=== PATIENT | female | born 1990 | race Caucasian/White ===

== ENCOUNTER 2017-12-15 10:33 | Inpatient (IN) | payer MEDICAID ==
[2017-12-15] MEDS ORDERED: ONDANSETRON HCL INJ/PF 4 MG/2 ML SDV IV ONE (11:20)
--- NOTE | 2017-12-15 11:22 | ER Document Report ---
ED Medical Screen (RME) - General Chief Complaint: High Blood Sugar Stated Complaint: BLOOD SUGAR ISSUE Time Seen by Provider: 12/15/17 11:16 Notes: RME DISCLOSURE I have seen this patient as part of a Rapid Medical Evaluation and, if applicable, placed any initially appropriate orders. The patient will be seen and fully evaluated, including a full history and physical exam, by a provider ( in Main ED or Fast Track) when a room becomes available. 27-year-old female PMH diabetes here with complaints of backache headache nausea vomiting ongoing for the past few days. She has also had an abscess on her left upper extremity for the past 10 days which she has been placed on 2 different antibiotics and states "it finally popped recently". She feels this is a source of her symptoms and states it feels like she might have DKA once again. She has not missed any doses of her insulin, she reports. EXAM Tachycardic Left forearm cellulitis TRAVEL OUTSIDE OF THE [place] IN LAST 30 DAYS: No - Related Data Allergies/Adverse Reactions: cefaclor [From Ceclor] Allergy (Unknown, Verified 03/04/16 09:16) codeine [Codeine] Allergy (Verified 03/04/16 09:16) Shellfish * Allergy (Verified 03/04/16 09:16) Past Medical History - Past Medical History Cardiac Medical History: Denies: Hx Coronary Artery Disease, Hx Heart Attack, Hx Hypertension Pulmonary Medical History: Reports: Hx Asthma Denies: Hx Bronchitis, Hx COPD, Hx Pneumonia Neurological Medical History: Reports: Hx Migraine. Denies: Hx Cerebrovascular Accident, Hx Seizures Endocrine Medical History: Reports: Hx Diabetes Mellitus Type 1 Malignancy Medical History: Reports: Hx Cervical Cancer - Precancerous cells on a LEEP GI Medical History: Reports: Hx Gastroesophageal Reflux Disease Musculoskeltal Medical History: Reports Hx Arthritis, Reports Hx Musculoskeletal Deformity, Reports Hx Musculoskeletal Trauma Skin Medical History: Reports Hx MRSA Psychiatric Medical History: Reports: Hx Anxiety Traumatic Medical History: Reports: Hx Fractures - All fingers, both feet and ankles, right leg, nose, both wrist and right Infectious Medical History: Reports: Hx MRSA Past Surgical History: Reports: Hx Adenoidectomy, Hx Gynecologic Surgery - LEEP , Hx Myringotomy, Hx Oral Surgery - [place] teeth, Hx Orthopedic Surgery - Right anterior cruciate ligament repair, Hx Tonsillectomy. Denies: Hx Pacemaker - Immunizations Immunizations up to date: Yes Hx Diphtheria, Pertussis, Tetanus Vaccination: Yes - "ATLEAST 5 YEARS AGO" Physical Exam - Vital signs Vitals: Temp Pulse Resp BP Pulse Ox 98.8 F 127 H 16 128/74 H 97 12/15/17 10:40 12/15/17 10:40 12/15/17 10:40 12/15/17 10:40 12/15/17 10:40 Course - Vital Signs Vital signs: Temp Pulse Resp BP Pulse Ox 98.8 F 127 H 16 128/74 H 97 12/15/17 10:40 12/15/17 10:40 12/15/17 10:40 12/15/17 10:40 12/15/17 10:40
[2017-12-15] MEDS: NORMAL SALINE 1000 ML 1,000 ML IV PRN ×2 (11:31→12:17)
[2017-12-15 11:44] LABS: ABSOLUTE BASOPHILS # (AUTO) 0.1 10^3/uL (0.0-0.2); ABSOLUTE EOSINOPHILS # (AUTO) 0.1 10^3/uL (0.0-0.6); ABSOLUTE LYMPHOCYTES (AUTO) 1.5 10^3/uL (0.5-4.7); ABSOLUTE MONOCYTES (AUTO) 0.4 10^3/uL (0.1-1.4); ABSOLUTE NEUT (AUTO) 8.4 10^3/uL (1.7-8.2); BASOPHILS % (AUTO) 0.6 % (0-2); HEMATOCRIT 45.5 % (36.0-47.0); HEMOGLOBIN 15.7 g/dL (12.0-15.5); LYMPHOCYTES % (AUTO) 14.5 % (13-45); MEAN CORPUSCULAR HGB CONC 34.5 g/dL (32.0-36.0); MEAN CORPUSCULAR VOLUME 93 fl (80-97); PLATELET COUNT 437 10^3/uL (150-450); RED CELL DISTRIBUTION WIDTH 12.7 % (11.5-14.0); SEGMENTED NEUTROPHILS % (AUTO) 79.9 % (42-78); TOTAL CELLS COUNTED % (AUTO) 100 %; WHITE BLOOD COUNT 10.5 10^3/uL (4.0-10.5)
[2017-12-15] MEDS ORDERED: VANCOMYCIN HCL INJ 1000 MG VIAL IV ONE (11:58)
[2017-12-15] MEDS ORDERED: PIPERACILLIN/TAZOBACTAM 3.375 GM VIAL IV ONE (11:58)
[2017-12-15] MEDS ORDERED: FENTANYL CITRATE INJ/PF 100 MCG/2 ML AMPUL IV ONE (11:58)
[2017-12-15 12:04] LABS: ALANINE AMINOTRANSFERASE 28 U/L (9-52); ALBUMIN 4.3 g/dL (3.5-5.0); ALKALINE PHOSPHATASE 74 U/L (38-126); ASPARTATE AMINO TRANSFERASE 17 U/L (14-36); BILIRUBIN,DIRECT 0.5 mg/dL (0.0-0.4); BILIRUBIN,TOTAL 0.5 mg/dL (0.2-1.3); BLOOD UREA NITROGEN 10 mg/dL (7-20); CALCIUM 10.1 mg/dL (8.4-10.2); POTASSIUM 4.9 mmol/L (3.6-5.0); TOTAL PROTEIN 7.8 g/dL (6.3-8.2)
--- NOTE | 2017-12-15 12:06 | ER Document Report ---
ED General - General Chief Complaint: High Blood Sugar Stated Complaint: BLOOD SUGAR ISSUE Time Seen by Provider: 12/15/17 11:16 Mode of Arrival: Ambulatory Information source: Patient Notes: 27-year-old female type I diabetic presents with complaints of high blood sugar nausea vomiting. Patient believes she is in DKA, last similar episode was 5 years ago. Patient notes that approximately one half weeks ago her arm got stuck in the car door. Patient notes 2 days later became erythematous, she was seen by her primary care physician Dr. Ba patient was placed on Keflex and then clindamycin which she is currently taking. Patient notes the area opened up yesterday. Notes blood sugar was 300 last night Patient states hemoglobin A1c is approximately 9 TRAVEL OUTSIDE OF THE [place] IN LAST 30 DAYS: No - HPI Onset: Last week Onset/Duration: Persistent, Worse Quality of pain: Achy Severity: Mild Pain Level: 1 Associated symptoms: Nausea, Vomiting, Other Exacerbated by: Movement Relieved by: Denies Similar symptoms previously: No Recently seen / treated by doctor: No - Related Data Allergies/Adverse Reactions: cefaclor [From Ceclor] Allergy (Unknown, Verified 12/15/17 11:22) codeine [Codeine] Allergy (Verified 12/15/17 11:22) Shellfish * Allergy (Verified 12/15/17 11:22) Past Medical History - Social History Smoking Status: Current Every Day Smoker Cigarette use (# per day): Yes Chew tobacco use (# tins/day): No Smoking Education Provided: No Frequency of alcohol use: Occasional Drug Abuse: None Family History: Reviewed & Not Pertinent, Arthritis, CAD, CVA, DM, Hyperlipidemia, Hypertension, Malignancy, Thyroid Disfunction Patient has suicidal ideation: No Patient has homicidal ideation: No - Past Medical History Cardiac Medical History: Denies: Hx Coronary Artery Disease, Hx Heart Attack, Hx Hypertension Pulmonary Medical History: Reports: Hx Asthma Denies: Hx Bronchitis, Hx COPD, Hx Pneumonia Neurological Medical History: Reports: Hx Migraine. Denies: Hx Cerebrovascular Accident, Hx Seizures Endocrine Medical History: Reports: Hx Diabetes Mellitus Type 1 Renal/ Medical History: Denies: Hx Peritoneal Dialysis Malignancy Medical History: Reports: Hx Cervical Cancer - Precancerous cells on a LEEP GI Medical History: Reports: Hx Gastroesophageal Reflux Disease Musculoskeltal Medical History: Reports Hx Arthritis, Reports Hx Musculoskeletal Deformity, Reports Hx Musculoskeletal Trauma Skin Medical History: Reports Hx MRSA Psychiatric Medical History: Reports: Hx Anxiety Traumatic Medical History: Reports: Hx Fractures - All fingers, both feet and ankles, right leg, nose, both wrist and right Infectious Medical History: Reports: Hx MRSA Past Surgical History: Reports: Hx Adenoidectomy, Hx Gynecologic Surgery - LEEP , Hx Myringotomy, Hx Oral Surgery - [place] teeth, Hx Orthopedic Surgery - Right anterior cruciate ligament repair, Hx Tonsillectomy. Denies: Hx Pacemaker - Immunizations Immunizations up to date: Yes Hx Diphtheria, Pertussis, Tetanus Vaccination: Yes - "ATLEAST 5 YEARS AGO" Hx Pneumococcal Vaccination: 04/06/14 Review of Systems - Review of Systems Notes: REVIEW OF SYSTEMS: CONSTITUTIONAL : Denies fever, chills, or sweats. Denies recent illness. EENT: Denies eye, ear, throat, or mouth pain or symptoms. Denies nasal or sinus congestion or discharge. Denies throat, tongue, or mouth swelling or difficulty swallowing. CARDIOVASCULAR: Denies chest pain. Denies palpitations or racing or irregular heart beat. Denies ankle edema. RESPIRATORY: Denies cough, cold, or chest congestion. Denies shortness of breath, difficulty breathing, or wheezing. GASTROINTESTINAL: Admits nausea vomiting GENITOURINARY: Denies difficulty urinating, painful urination, burning, frequency, blood in urine, or discharge. FEMALE GENITOURINARY: Denies vaginal bleeding, heavy or abnormal periods, irregular periods. Denies vaginal discharge or odor. MUSCULOSKELETAL: Denies back or neck pain or stiffness. Denies joint pain or swelling. SKIN: Admits to abscess palmar forearm HEMATOLOGIC : Denies easy bruising or bleeding. LYMPHATIC: Denies swollen, enlarged glands. NEUROLOGICAL: Denies confusion or altered mental status. Denies passing out or loss of consciousness. Denies dizziness or lightheadedness. Denies headache. Denies weakness or paralysis or loss of use of either side. Denies problems with gait or speech. Denies sensory loss, numbness, or tingling. Denies seizures. PSYCHIATRIC: Denies anxiety or stress. Denies depression, suicidal ideation, or homicidal ideation. ALL OTHER SYSTEMS REVIEWED AND NEGATIVE. PHYSICAL EXAMINATION: GENERAL: Well-appearing, well-nourished and in no acute distress. HEAD: Atraumatic, normocephalic. EYES: Pupils equal round and reactive to light, extraocular movements intact, conjunctiva are normal. ENT: Nares patent, oropharynx clear without exudates. Moist mucous membranes. NECK: Normal range of motion, supple without lymphadenopathy LUNGS: Breath sounds clear to auscultation bilaterally and equal. No wheezes rales or rhonchi. HEART: Tachycardic ABDOMEN: Soft, nontender, nondistended abdomen. No guarding, no rebound. No masses appreciated. Female : deferred Musculoskeletal: Normal range of motion, no pitting or edema. No cyanosis. NEUROLOGICAL: Cranial nerves grossly intact. Normal speech, normal gait. Normal sensory, motor exams PSYCH: Normal mood, normal affect. SKIN: 4 x 5 cm abscess left palmar aspect of the forearm with 2 areas of drainage Dictation was performed using [employer] voice recognition software Physical Exam - Vital signs Vitals: Temp Pulse Resp BP Pulse Ox 98.8 F 127 H 16 128/74 H 97 12/15/17 10:40 12/15/17 10:40 12/15/17 10:40 12/15/17 10:40 12/15/17 10:40 Course - Re-evaluation Re-evalutation: 12/15/17 12:06 Patient is a poorly controlled diabetic, 12/15/17 13:33 Patient is in DKA, antibiotics started, insulin drip ordered, patient will be admitted to the hospitalist service - Vital Signs Vital signs: Temp Pulse Resp BP Pulse Ox 98.8 F 127 H 20 118/71 100 12/15/17 10:40 12/15/17 10:40 12/15/17 13:01 12/15/17 13:01 12/15/17 13:01 - Laboratory Result Diagrams: 12/15/17 11:33 12/15/17 11:33 Laboratory results interpreted by me: 12/15/17 12/15/17 12/15/17 11:33 11:33 12:00 Hgb 15.7 H Seg Neutrophils % 79.9 H Absolute Neutrophils 8.4 H Carbon Dioxide 18 L Anion Gap 24 H Glucose 398 H Direct Bilirubin 0.5 H Urine Glucose (UA) >=500 H Urine Ketones 80 H Critical Care Note - Critical Care Note Total time excluding time spent on procedures (mins): 49 Comments: 49 minutes of critical care time spent in direct contact evaluating and reevaluating the patient, treating symptoms, reviewing labs and studies and speaking with family and consultants excluding any procedures Discharge - Discharge Clinical Impression: Abscess of left forearm Diabetic ketoacidosis Qualifiers: Diabetes mellitus type: type 1 Diabetes mellitus complication detail: without coma Qualified Code(s): E10.10 - Type 1 diabetes mellitus with ketoacidosis without coma Condition: Fair Disposition: ADMITTED INPATIENT Admitting Provider: Hospitalist Unit Admitted: Telemetry
[2017-12-15 12:10] LABS: CARBON DIOXIDE 18 mmol/L (22-30); CHLORIDE 99 mmol/L (98-107); GLUCOSE 398 mg/dL (75-110)
[2017-12-15 12:12] LABS: ANION GAP 24 (5-19)
[2017-12-15 12:37] LABS: APPEARANCE,URINE CLEAR; BILIRUBIN,URINE NEGATIVE (NEGATIVE); COLOR,URINE STRAW; GLUCOSE, URINE >=500 mg/dL (NEGATIVE); KETONES,URINE 80 mg/dL (NEGATIVE); LEUKOCYTE ESTERASE,URINE NEGATIVE (NEGATIVE); NITRITE,URINE NEGATIVE (NEGATIVE); PROTEIN,URINE NEGATIVE (NEGATIVE); URINE SPECIFIC GRAVITY 1.027; UROBILINOGEN,URINE NEGATIVE mg/dL (<2.0)
[2017-12-15 12:39] LABS: VENOUS BLOOD HCO3 20.4 mmol/L (20-32); VENOUS BLOOD PCO2 39.2 mmHg (35-63); VENOUS BLOOD PH 7.33 (7.30-7.42)
[2017-12-15] MEDS ORDERED: INSULIN REG, HUMAN 100 UNIT/ML 3 ML VIAL (PYX) IV ONE (13:22)
[2017-12-15] MEDS ORDERED: NORMAL SALINE 100 ML with INSULIN REGULAR, HUMAN 100 UNIT IV PRN ×2 (13:50)
[2017-12-15] MEDS ORDERED: DEXTROSE 40% GEL 15 GM TUBE PO PRN ×4 (13:50)
[2017-12-15] MEDS ORDERED: IPRATROPIUM/ALBUTEROL 0.5-2.5 MG/3 ML AMPUL NEB PRN (13:50)
[2017-12-15] MEDS ORDERED: GLUCAGON,HUMAN RECOMB 1 MG INJ IM PRN (13:50)
[2017-12-15] MEDS ORDERED: ACETAMINOPHEN 325 MG TABLET PO PRN (13:50)
[2017-12-15] MEDS ORDERED: DEXTROSE 50%-WATER 25 GM/50 ML DISP.SYRIN IV PRN ×4 (13:50)
[2017-12-15] MEDS ORDERED: NORMAL SALINE 1000 ML 1,000 ML IV PRN (13:50)
[2017-12-15] MEDS ORDERED: GLUCAGON,HUMAN RECOMB 1 MG INJ SUBCUT PRN (13:50)
[2017-12-15] MEDS ORDERED: LORAZEPAM INJ 2 MG/1 ML VIAL IV ONE (14:00)
[2017-12-15] MEDS: OXYCODONE-ACETAMINOPHEN 5-325 MG TABLET PO PRN ×3 (14:22→22:45)
--- NOTE | 2017-12-15 14:27 | PDOC H&P ---
History of Present Illness Admission Date/PCP: 12/15/17 13:44 МАРИЯ HUDDLESTON MD Patient complains of: Nausea and vomiting History of Present Illness: NEIL LONG is a 27 year old female with type 1 diabetes. She injured her left wrist on a car door about 4 days ago and it is subsequently become red and swollen and is now draining. Her blood sugar has been over 300. Today she developed intractable nausea and vomiting and came into the emergency room. She denies fevers and chills. She denies any loss of sensation hand or significant pain with movement of her wrist. Currently she is complaining of pain in the back of her head as well as nausea. She received 50 mcg of fentanyl in the emergency department without significant effect. Past Medical History Cardiac Medical History: Denies: Coronary Artery Disease, Myocardial Infarction, Hypertension Pulmonary Medical History: Reports: Asthma Denies: Bronchitis, Chronic Obstructive Pulmonary Disease (COPD), Pneumonia Neurological Medical History: Reports: Migraine Denies: Seizures Endocrine Medical History: Reports: Diabetes Mellitus Type 1 Malignancy Medical History: Reports: Cervical Cancer - Precancerous cells on a LEEP GI Medical History: Reports: Gastroesophageal Reflux Disease Musculoskeltal Medical History: Reports: Arthritis Hematology: Denies: Anemia Infectious Medical History: Reports: Methicillin-Resistant Staph Aureus Past Surgical History Past Surgical History: Reports: Adenoidectomy, Orthopedic Surgery - Right anterior cruciate ligament repair, Tonsillectomy Denies: Pacemaker Social History Information Source: Patient Smoking Status: Current Every Day Smoker Hx Recreational Drug Use: No Hx Prescription Drug Abuse: No - Advance Directive Resuscitation Status: Full Code Surrogate healthcare decision maker:: Declined to specify Family History Family History: Reviewed & Not Pertinent, Arthritis, CAD, CVA, DM, Hyperlipidemia, Hypertension, Malignancy, Thyroid Disfunction Parental Family History Reviewed: Yes Children Family History Reviewed: No Sibling(s) Family History Reviewed.: No Medication/Allergy Home Medications: Insulin Aspart [Novolog Insulin (Aspart) 100 unit/mL] 0 unit SUBCUT ASDIR PRN Insulin Detemir [Levemir Insulin 100 units/mL] 35 units SQ QAM 03/22/14 Insulin Detemir [Levemir Insulin 300 Units/3 ml Insuln.pen] 30 unit SUBCUT QHS 05/05/16 Allergies/Adverse Reactions: cefaclor [From Ceclor] Allergy (Unknown, Verified 12/15/17 11:22) codeine [Codeine] Allergy (Verified 12/15/17 11:22) Shellfish * Allergy (Verified 12/15/17 11:22) Review of Systems All systems: reviewed and no additional remarkable complaints except as stated Physical Exam Vital Signs: Temp Pulse Resp BP Pulse Ox 98.8 F 127 H 20 118/71 100 12/15/17 10:40 12/15/17 10:40 12/15/17 13:01 12/15/17 13:01 12/15/17 13:01 General appearance: PRESENT: no acute distress Respiratory exam: PRESENT: clear to auscultation andrea Cardiovascular exam: PRESENT: RRR GI/Abdominal exam: PRESENT: normal bowel sounds, soft, tenderness - Diffuse Neurological exam: PRESENT: alert Psychiatric exam: PRESENT: anxious, flat affect. ABSENT: appropriate affect Skin exam: PRESENT: erythema, warm, other - About a 3 cm raised erythematous region on the palmar surface of her right wrist with some evident drainage Assessment & Plan - Diagnosis (1) Diabetic ketoacidosis Qualifiers: Diabetes mellitus type: type 1 Diabetes mellitus complication detail: without coma Qualified Code(s): E10.10 - Type 1 diabetes mellitus with ketoacidosis without coma Is this a current diagnosis for this admission?: Yes Plan: I will put her on an insulin drip with every hour Accu-Cheks, hydrate her with normal saline (2) Abscess of left forearm Is this a current diagnosis for this admission?: Yes Plan: Empiric treatment with vancomycin and Zosyn. Looks to me like it needs to be opened up at least. Orthopedics is planning to take her to the OR tomorrow to wash this out. Continue her n.p.o. status. (3) Anxiety Is this a current diagnosis for this admission?: Yes Plan: Her level of anxiety is out of proportion to her current problem. She looks to me like she might be withdrawing from something. I will give her some Ativan right now and continue to monitor closely.
[2017-12-15 15:16] LABS: URINE AMPHETAMINES SCREEN NEGATIVE; URINE BARBITURATES SCREEN NEGATIVE; URINE BENZODIAZEPINES SCREEN NEGATIVE; URINE COCAINE SCREEN NEGATIVE; URINE METHADONE SCREEN NEGATIVE; URINE PHENCYCLIDINE SCREEN NEGATIVE
[2017-12-15 15:24] LABS: URINE MARIJUANA (THC) SCREEN NEGATIVE
[2017-12-15] MEDS ORDERED: ENOXAPARIN SODIUM INJ 40 MG/0.4 ML DISP.SYRIN SUBCUT ONE (16:00)
[2017-12-15] MEDS ORDERED: AMPICILLIN SOD/SULBACTAM 3 GM VIAL IV SCH (18:00)
[2017-12-15] MEDS ORDERED: POTASSI CL 20 MEQ/D5-1/2NS 1L 1000 ML IV PRN (21:00)
[2017-12-15] MEDS: AMPICILLIN SODIUM/SULBACTAM NA 3 GM in NORMAL SALINE 100 ML IV SCH (21:10)
[2017-12-15 21:24] LABS: ANION GAP 15 (5-19); BLOOD UREA NITROGEN 7 mg/dL (7-20); CALCIUM 9.3 mg/dL (8.4-10.2); CARBON DIOXIDE 21 mmol/L (22-30); CHLORIDE 106 mmol/L (98-107); GLUCOSE 142 mg/dL (75-110); POTASSIUM 4.1 mmol/L (3.6-5.0); SODIUM 141.9 mmol/L (137-145)
[2017-12-15 21:26] LABS: ALBUMIN 3.4 g/dL (3.5-5.0); ANION GAP 15 (5-19); BLOOD UREA NITROGEN 7 mg/dL (7-20); CALCIUM 9.3 mg/dL (8.4-10.2); CARBON DIOXIDE 22 mmol/L (22-30); CHLORIDE 106 mmol/L (98-107); GLUCOSE 142 mg/dL (75-110); PHOSPHORUS 2.7 mg/dL (2.5-4.5); SODIUM 142.8 mmol/L (137-145)
[2017-12-15] MEDS ORDERED: VANCOMYCIN HCL INJ 1000 MG VIAL IV SCH (22:00)
[2017-12-15] MEDS ORDERED: ZOLPIDEM TARTRATE 5 MG TABLET PO PRN (22:31)
[2017-12-15] MEDS: FAMOTIDINE INJ/PF 20 MG/2 ML SDV IV SCH (22:41)
[2017-12-15] MEDS: VANCOMYCIN HCL 1,000 MG in DEXTROSE 5%-WATER 250 ML IV SCH (22:41)
[2017-12-16] MEDS: AMPICILLIN SODIUM/SULBACTAM NA 3 GM in NORMAL SALINE 100 ML IV SCH ×4 (01:50→17:19)
[2017-12-16 02:31] LABS: ALBUMIN 3.2 g/dL (3.5-5.0); ANION GAP 13 (5-19); BLOOD UREA NITROGEN 8 mg/dL (7-20); CALCIUM 9.1 mg/dL (8.4-10.2); CARBON DIOXIDE 18 mmol/L (22-30); CHLORIDE 109 mmol/L (98-107); GLUCOSE 210 mg/dL (75-110); POTASSIUM 3.8 mmol/L (3.6-5.0); SODIUM 140.4 mmol/L (137-145)
[2017-12-16] MEDS: OXYCODONE-ACETAMINOPHEN 5-325 MG TABLET PO PRN ×3 (03:49→15:58)
[2017-12-16] MEDS: VANCOMYCIN HCL 1,000 MG in DEXTROSE 5%-WATER 250 ML IV SCH ×2 (03:49→17:15)
[2017-12-16 06:26] LABS: ABSOLUTE BASOPHILS # (AUTO) 0.1 10^3/uL (0.0-0.2); ABSOLUTE EOSINOPHILS # (AUTO) 0.2 10^3/uL (0.0-0.6); ABSOLUTE LYMPHOCYTES (AUTO) 2.7 10^3/uL (0.5-4.7); ABSOLUTE MONOCYTES (AUTO) 0.5 10^3/uL (0.1-1.4); ABSOLUTE NEUT (AUTO) 4.4 10^3/uL (1.7-8.2); BASOPHILS % (AUTO) 0.7 % (0-2); EOSINOPHILS % (AUTO) 2.8 % (0-6); HEMATOCRIT 36.5 % (36.0-47.0); LYMPHOCYTES % (AUTO) 34.1 % (13-45); MEAN CORPUSCULAR HEMOGLOBIN 31.3 pg (27.0-33.4); MEAN CORPUSCULAR HGB CONC 34.4 g/dL (32.0-36.0); MEAN CORPUSCULAR VOLUME 91 fl (80-97); MONOCYTES % (AUTO) 6.9 % (3-13); PLATELET COUNT 357 10^3/uL (150-450); RED BLOOD COUNT 4.02 10^6/uL (3.72-5.28); RED CELL DISTRIBUTION WIDTH 12.2 % (11.5-14.0); SEGMENTED NEUTROPHILS % (AUTO) 55.5 % (42-78); TOTAL CELLS COUNTED % (AUTO) 100 %; WHITE BLOOD COUNT 7.9 10^3/uL (4.0-10.5)
[2017-12-16 06:43] LABS: ALANINE AMINOTRANSFERASE 23 U/L (9-52); ALKALINE PHOSPHATASE 50 U/L (38-126); ANION GAP 12 (5-19); ASPARTATE AMINO TRANSFERASE 18 U/L (14-36); BILIRUBIN,DIRECT 0.4 mg/dL (0.0-0.4); BILIRUBIN,TOTAL 0.4 mg/dL (0.2-1.3); BLOOD UREA NITROGEN 6 mg/dL (7-20); CALCIUM 8.9 mg/dL (8.4-10.2); CARBON DIOXIDE 21 mmol/L (22-30); CHLORIDE 110 mmol/L (98-107); GLUCOSE 156 mg/dL (75-110); PHOSPHORUS 3.1 mg/dL (2.5-4.5); POTASSIUM 3.6 mmol/L (3.6-5.0); SODIUM 143.2 mmol/L (137-145); TOTAL PROTEIN 5.8 g/dL (6.3-8.2)
[2017-12-16 07:26] LABS: HEMOGLOBIN 12.6 g/dL (12.0-15.5)
[2017-12-16] MEDS ORDERED: 1/2 NORMAL SALINE 1,000 ML IV PRN (07:59)
[2017-12-16] MEDS ORDERED: LORAZEPAM INJ 2 MG/1 ML VIAL IV PRN (08:05)
[2017-12-16] MEDS: FAMOTIDINE INJ/PF 20 MG/2 ML SDV IV SCH ×2 (08:43→22:29)
[2017-12-16] MEDS: ENOXAPARIN SODIUM INJ 40 MG/0.4 ML DISP.SYRIN SUBCUT SCH (08:47)
[2017-12-16] MEDS: METHIMAZOLE 5 MG TABLET PO SCH (09:03)
[2017-12-16] MEDS ORDERED: (PENDING PHARMACY ID) (Methimazole [Tapazole] 10 MG) PO SCH (10:00)
[2017-12-16] MEDS ORDERED: INSULIN LISPRO 100 UNIT/ML 3 ML VIAL SUBCUT SCH (11:00)
[2017-12-16] MEDS: INSULIN LISPRO 100 UNIT/ML 3 ML VIAL SUBCUT PRN ×3 (11:35→22:30)
[2017-12-16] MEDS ORDERED: INSULIN GLARGINE,HUM.REC.ANLOG 300 UNIT/3 ML INSULN.PEN SUBCUT SCH (12:00)
[2017-12-16] MEDS ORDERED: BACITRACIN INJ 50,000 UNIT VIAL ONE (12:38)
[2017-12-16] MEDS ORDERED: MIDAZOLAM 2 MG/2 ML INJ ONE (13:04)
[2017-12-16] MEDS ORDERED: FENTANYL CITRATE INJ/PF 100 MCG/2 ML AMPUL ONE (13:04)
[2017-12-16] MEDS ORDERED: PROPOFOL INJ 200 MG/20 ML VIAL IV ONE (13:05)
--- NOTE | 2017-12-16 13:25 | PDOC PROGRESS REPORT ---
Subjective Progress Note for:: 12/16/17 Subjective:: Continues to be very anxious. Complains of back pain. Now recalls that she has been out of her methimazole for "sometime". Reason For Visit: DKA,WRIST LESION Physical Exam Vital Signs: Temp Pulse Resp BP Pulse Ox 98.5 F 114 H 18 123/65 100 12/16/17 11:32 12/16/17 11:32 12/16/17 11:32 12/16/17 11:32 12/16/17 11:32 Intake & Output 12/15/17 12/16/17 12/17/17 06:59 06:59 06:59 Intake Total 1450 Balance 1450 General appearance: PRESENT: no acute distress Respiratory exam: PRESENT: clear to auscultation andrea Cardiovascular exam: PRESENT: RRR GI/Abdominal exam: PRESENT: soft Neurological exam: PRESENT: alert Psychiatric exam: PRESENT: flat affect Skin exam: PRESENT: dry, warm Results Laboratory Results: 12/16/17 06:13 12/16/17 06:13 12/15/17 12/15/17 12/16/17 20:54 20:54 02:05 WBC RBC Hgb Hct MCV MCH MCHC RDW Plt Count Seg Neutrophils % Lymphocytes % Monocytes % Eosinophils % Basophils % Absolute Neutrophils Absolute Lymphocytes Absolute Monocytes Absolute Eosinophils Absolute Basophils Sodium 142.8 141.9 140.4 Potassium 4.0 4.1 3.8 Chloride 106 106 109 H Carbon Dioxide 22 21 L 18 L Anion Gap 15 15 13 BUN 7 7 8 Creatinine 0.43 L 0.42 L 0.40 L Est GFR ( Amer) > 60 > 60 > 60 Est GFR (Non-Af Amer) > 60 > 60 > 60 Glucose 142 H 142 H 210 H Calcium 9.3 9.3 9.1 Phosphorus 2.7 3.0 Magnesium Total Bilirubin AST ALT Alkaline Phosphatase Total Protein Albumin 3.4 L 3.2 L TSH Free T4 12/16/17 12/16/17 12/16/17 06:13 06:13 06:13 WBC 7.9 RBC 4.02 Hgb 12.6 D Hct 36.5 MCV 91 MCH 31.3 MCHC 34.4 RDW 12.2 Plt Count 357 Seg Neutrophils % 55.5 Lymphocytes % 34.1 Monocytes % 6.9 Eosinophils % 2.8 Basophils % 0.7 Absolute Neutrophils 4.4 Absolute Lymphocytes 2.7 Absolute Monocytes 0.5 Absolute Eosinophils 0.2 Absolute Basophils 0.1 Sodium 143.2 Potassium 3.6 Chloride 110 H Carbon Dioxide 21 L Anion Gap 12 BUN 6 L Creatinine 0.38 L Est GFR ( Amer) > 60 Est GFR (Non-Af Amer) > 60 Glucose 156 H Calcium 8.9 Phosphorus 3.1 Magnesium 1.6 Total Bilirubin 0.4 AST 18 ALT 23 Alkaline Phosphatase 50 Total Protein 5.8 L Albumin 3.0 L TSH < 0.01 L Free T4 12/16/17 06:13 WBC RBC Hgb Hct MCV MCH MCHC RDW Plt Count Seg Neutrophils % Lymphocytes % Monocytes % Eosinophils % Basophils % Absolute Neutrophils Absolute Lymphocytes Absolute Monocytes Absolute Eosinophils Absolute Basophils Sodium Potassium Chloride Carbon Dioxide Anion Gap BUN Creatinine Est GFR ( Amer) Est GFR (Non-Af Amer) Glucose Calcium Phosphorus Magnesium Total Bilirubin AST ALT Alkaline Phosphatase Total Protein Albumin TSH Free T4 2.11 Assessment & Plan - Diagnosis (1) Diabetic ketoacidosis Qualifiers: Diabetes mellitus type: type 1 Diabetes mellitus complication detail: without coma Qualified Code(s): E10.10 - Type 1 diabetes mellitus with ketoacidosis without coma Is this a current diagnosis for this admission?: Yes Plan: Gap is closed. Stop insulin drip. Restart her home Lantus. Cover with sliding scale every 4 hours. Continue to monitor her CO2 to make sure her gap does not reopen. Continue hydration. (2) Abscess of left forearm Is this a current diagnosis for this admission?: Yes Plan: Due to go down for a washout later today. Continue antibiotics for now pending cultures (3) Hyperthyroidism Is this a current diagnosis for this admission?: Yes Plan: Restart her methimazole. Her free T4 was not notably elevated. (4) Anxiety Is this a current diagnosis for this admission?: Yes Plan: Her level of anxiety is out of proportion to her current problem. May be related to hyperthyroidism. Treat with benzodiazepines for now
[2017-12-16] MEDS ORDERED: DIPHENHYDRAMINE HCL 50 MG/ML VIAL IV PRN (13:57)
[2017-12-16] MEDS ORDERED: ONDANSETRON HCL INJ/PF 4 MG/2 ML SDV IV PRN (13:57)
[2017-12-16] MEDS ORDERED: FENTANYL CITRATE INJ/PF 100 MCG/2 ML AMPUL IV PRN ×3 (13:57)
[2017-12-16] MEDS ORDERED: ACETAMINOPHEN 100 ML IV ONE (14:13)
[2017-12-16] MEDS ORDERED: KETOROLAC TROMETHAMINE INJ/PF 30 MG/1 ML SDV ONE (14:13)
[2017-12-16] MEDS: HYDROMORPHONE HCL INJ/PF 2 MG/ML AMPULE ONE ×2 (14:15→14:30)
[2017-12-16] MEDS ORDERED: ONDANSETRON HCL INJ/PF 4 MG/2 ML SDV ONE (14:36)
[2017-12-16] MEDS ORDERED: RINGERS SOLUTION,LACTATED 1,000 ML IV PRN (14:37)
[2017-12-16] MEDS ORDERED: INSULIN LISPRO 100 UNIT/ML 3 ML VIAL ONE (14:38)
--- NOTE | 2017-12-16 15:17 | PDOC CONSULTATION ---
Consultation Consult Date: 12/15/17 Consult reason:: Left forearm/wrist abscess History of Present Illness Admission Date/PCP: 12/15/17 13:44 МАРИЯ HUDDLESTON MD Patient complains of: Left wrist wound drainage and pain History of Present Illness: NEIL LONG is a 27 year old diabetic female with what she states 1 week of redness swelling and pain. She states she injured it with a door. States she saw her primary who started on antibiotics but when the pain and drainage got worse patient came to the ER for evaluation. She was admitted for infection and her diabetic ketoacidosis. States having fever and increasing pain and swelling of her left wrist on the volar aspect. Denies any numbness or tingling or paresthesias or lack of function of her digits. Has any previous injuries or infection in that left hand. Pain is 5 out of 5 pain. Past Medical History Cardiac Medical History: Denies: Coronary Artery Disease, Myocardial Infarction, Hypertension Pulmonary Medical History: Reports: Asthma Denies: Bronchitis, Chronic Obstructive Pulmonary Disease (COPD), Pneumonia Neurological Medical History: Reports: Migraine Denies: Seizures Endocrine Medical History: Reports: Diabetes Mellitus Type 1 Malignancy Medical History: Reports: Cervical Cancer - Precancerous cells on a LEEP GI Medical History: Reports: Gastroesophageal Reflux Disease Musculoskeltal Medical History: Reports: Arthritis Hematology: Denies: Anemia Infectious Medical History: Reports: Methicillin-Resistant Staph Aureus Past Surgical History Past Surgical History: Reports: Adenoidectomy, Orthopedic Surgery - Right anterior cruciate ligament repair, Tonsillectomy Denies: Pacemaker Social History Smoking Status: Current Every Day Smoker Frequency of Alcohol Use: Occasional Hx Recreational Drug Use: No Hx Prescription Drug Abuse: No - Advance Directive Resuscitation Status: Full Code Family History Family History: Reviewed & Not Pertinent, Arthritis, CAD, CVA, DM, Hyperlipidemia, Hypertension, Malignancy, Thyroid Disfunction Parental Family History Reviewed: No Children Family History Reviewed: No Sibling(s) Family History Reviewed.: No Medication/Allergy Home Medications: Insulin Aspart [Novolog Insulin (Aspart) 100 unit/mL] 0 unit SUBCUT .SLIDING SCALE PRN 07/26/12 Cephalexin Monohydrate [Keflex 500 mg Capsule] 500 mg PO Q6 12/15/17 Insulin Aspart [Novolog Insulin 100 Unit/1 ml 10 ml] 8 unit SUBCUT AC 12/15/17 Insulin Glargine,Hum.rec.anlog [Lantus Solostar] 40 unit SQ NOON 12/15/17 Methimazole [Tapazole] 10 mg PO DAILY 12/15/17 Allergies/Adverse Reactions: cefaclor [From Ceclor] Allergy (Unknown, Verified 12/15/17 11:22) codeine [Codeine] Allergy (Verified 12/15/17 11:22) Shellfish * Allergy (Verified 12/15/17 11:22) Review of Systems Constitutional: ABSENT: fever(s), night sweats, weight gain, weight loss Eyes: ABSENT: visual disturbances Ears: ABSENT: hearing changes Nose, Mouth, and Throat: ABSENT: sore throat Cardiovascular: ABSENT: chest pain, orthropnea Respiratory: ABSENT: dyspnea, hemoptysis Gastrointestinal: ABSENT: nausea, vomiting Musculoskeletal: PRESENT: as per HPI. ABSENT: deformity, dislocation Integumentary: PRESENT: as per HPI, wounds Neurological: ABSENT: numbness, paresthesias Psychiatric: ABSENT: hallucinations, homidical ideation, suicidal ideation Endocrine: ABSENT: cold intolerance, heat intolerance Hematologic/Lymphatic: ABSENT: easy bleeding, lymphadenopathy Allergic/Immunologic: ABSENT: seasonal rhinorrhea Physical Exam Vital Signs: Temp Pulse Resp BP Pulse Ox 36.9 C 114 H 18 123/65 100 12/16/17 11:32 12/16/17 11:32 12/16/17 11:32 12/16/17 11:32 12/16/17 11:32 Intake & Output 12/15/17 12/16/17 12/17/17 06:59 06:59 06:59 Intake Total 1450 Balance 1450 General appearance: PRESENT: no acute distress, well-nourished Head exam: PRESENT: atraumatic Eye exam: PRESENT: EOMI, PERRLA. ABSENT: nystagmus Ear exam: PRESENT: normal external ear exam Mouth exam: PRESENT: dry mucosa, neck supple Neck exam: ABSENT: lymphadenopathy, thyromegaly Respiratory exam: PRESENT: symmetrical, unlabored. ABSENT: accessory muscle use , chest wall tenderness, tachypnea Cardiovascular exam: PRESENT: RRR Pulses: PRESENT: normal radial pulses Vascular exam: PRESENT: normal capillary refill GI/Abdominal exam: PRESENT: soft. ABSENT: guarding, organolmegaly, tenderness Neurological exam: PRESENT: alert, awake, oriented to person, oriented to place , oriented to time, oriented to situation Psychiatric exam: PRESENT: appropriate affect, normal mood Skin exam: PRESENT: erythema, skin tears Adult Front & Back Image: 1 - 2 sinus tracts on the volar aspect of the left wrist just at the distal aspect of the forearm. There is post able to be expressed. Elevated erythema about 1.5 x 1.5 cm. Patient does have full flexion extension of her fingers with some discomfort but they are completely intact. There is no swelling of the digits or hand and no tenderness in the thenar or hyperthenar region. She has good capillary refill to her digits. There is no streaking or lymphadenopathy proximal. Some discomfort with the wrist motion but that seems to be intact as well. Results Laboratory Results: 12/16/17 06:13 12/16/17 06:13 12/15/17 12/15/17 12/16/17 20:54 20:54 02:05 WBC RBC Hgb Hct MCV MCH MCHC RDW Plt Count Seg Neutrophils % Lymphocytes % Monocytes % Eosinophils % Basophils % Absolute Neutrophils Absolute Lymphocytes Absolute Monocytes Absolute Eosinophils Absolute Basophils Sodium 142.8 141.9 140.4 Potassium 4.0 4.1 3.8 Chloride 106 106 109 H Carbon Dioxide 22 21 L 18 L Anion Gap 15 15 13 BUN 7 7 8 Creatinine 0.43 L 0.42 L 0.40 L Est GFR ( Amer) > 60 > 60 > 60 Est GFR (Non-Af Amer) > 60 > 60 > 60 Glucose 142 H 142 H 210 H Calcium 9.3 9.3 9.1 Phosphorus 2.7 3.0 Magnesium Total Bilirubin AST ALT Alkaline Phosphatase Total Protein Albumin 3.4 L 3.2 L TSH Free T4 12/16/17 12/16/17 12/16/17 06:13 06:13 06:13 WBC 7.9 RBC 4.02 Hgb 12.6 D Hct 36.5 MCV 91 MCH 31.3 MCHC 34.4 RDW 12.2 Plt Count 357 Seg Neutrophils % 55.5 Lymphocytes % 34.1 Monocytes % 6.9 Eosinophils % 2.8 Basophils % 0.7 Absolute Neutrophils 4.4 Absolute Lymphocytes 2.7 Absolute Monocytes 0.5 Absolute Eosinophils 0.2 Absolute Basophils 0.1 Sodium 143.2 Potassium 3.6 Chloride 110 H Carbon Dioxide 21 L Anion Gap 12 BUN 6 L Creatinine 0.38 L Est GFR ( Amer) > 60 Est GFR (Non-Af Amer) > 60 Glucose 156 H Calcium 8.9 Phosphorus 3.1 Magnesium 1.6 Total Bilirubin 0.4 AST 18 ALT 23 Alkaline Phosphatase 50 Total Protein 5.8 L Albumin 3.0 L TSH < 0.01 L Free T4 12/16/17 06:13 WBC RBC Hgb Hct MCV MCH MCHC RDW Plt Count Seg Neutrophils % Lymphocytes % Monocytes % Eosinophils % Basophils % Absolute Neutrophils Absolute Lymphocytes Absolute Monocytes Absolute Eosinophils Absolute Basophils Sodium Potassium Chloride Carbon Dioxide Anion Gap BUN Creatinine Est GFR ( Amer) Est GFR (Non-Af Amer) Glucose Calcium Phosphorus Magnesium Total Bilirubin AST ALT Alkaline Phosphatase Total Protein Albumin TSH Free T4 2.11 Status: Image reviewed by me Assessment & Plan - Diagnosis (1) Abscess of left forearm Is this a current diagnosis for this admission?: Yes Plan: 27-year-old female who has draining wounds in her forearm with a raised elevated likely abscess. Patient will be kept overnight and treated by the hospitalist for her diabetic ketoacidosis. Discussed with him that he will allow me to proceed with an I&D of the left forearm tomorrow. The meantime continue IV antibiotics. Cultures were taken prior to starting IV antibiotics. Meantime just apply a bulky dressing and she will be placed n.p.o. after midnight. After discussing the risk and benefits the patient consented for surgery. - Plan Summary Plan Summary: 27-year-old female with diabetic ketoacidosis and the left forearm abscess and infection that is draining. Patient states the injury occurred on Tuesday but I believe this is been going longer than that. She has 2 sinus tracts are draining. On the other extremity she has some markings that are consistent or potentially suspicious for IV drug abuse although patient denies she does.
--- NOTE | 2017-12-16 15:26 | Operative Report ---
Operative Report DATE OF SURGERY: 12/16/17 PREOPERATIVE DIAGNOSIS: Left forearm wrist abscess POSTOPERATIVE DIAGNOSIS: Same OPERATION: I&D and debridement of left forearm/wrist abscess SURGEON: ARMANDO SOUSA ANESTHESIA: GA TISSUE REMOVED OR ALTERED: Debrided tissue COMPLICATIONS: None ESTIMATED BLOOD LOSS: 20 mL INTRAOPERATIVE FINDINGS: As above PROCEDURE: Patient already was on IV antibiotics scheduled. She was brought to the operating room where she was given conscious sedation. A arm tourniquet was applied to her left upper extremity. The left hand wrist and forearm was prepped and draped in a normal sterile surgical fashion. Timeout was done identifying the left volar forearm/wrist as a correct site. The hand was held elevated and the tourniquet was inflated at 250 mmHg. A 15 blade was used to extend the connect the 2 sinus tracts and extended both proximally and distally. In a curvilinear fashion. I then proceeded to remove the sinus edges and debride the fibrous infected tissue and express the remaining pus underneath the skin. There is no violation of the fascial plane. Palmaris longus was visualized and debrided. It was left intact. Once the proteinaceous tissue was removed and the fascial tissue was debrided we then proceeded to copiously irrigated with bulb syringe to the incision. I was able to bring back the tissue and repairing as a curvilinear fashion using 3-0 nylon using horizontal mattress and simple stitches. After 20 minutes on the tourniquet in the kit 4 x 4 dressing and soft roll and Alirio bandage was applied and the patient was then transported to PACU in stable condition
--- NOTE | 2017-12-16 15:43 | RADIOLOGY REPORT (SQ) ---
EXAM DESCRIPTION: PICC INSERTION; FLUORO/CV PLACEMENT; U/S GUIDE FOR VASCULAR ACCESS COMPLETED DATE/TIME: 12/16/2017 3:33 pm REASON FOR STUDY: IV access; IV ACCESS; IV ACC COMPARISON: None. FLUOROSCOPY TIME: 28 seconds 2 images saved to PACS. TECHNIQUE: Fluoroscopic and ultrasound guided PICC placement. LIMITATIONS: None. PROCEDURE: After written consent and assessment were obtained, the patient was brought into the fluo roscopy room and place supine on the table. Ultrasound was used on the patient's right arm for PICC access. The right arm was prepped and draped in a sterile fashion along with the ultrasound probe. Th e entry site was anesthetized with 1% lidocaine. A 21 gauge 7 cm needle was advanced through the skin and into the basilic vein under live ultrasound guidance. An ultrasound image was saved to PACS con firming access site. A .018 guide wire was then inserted through the needle and into the venous syst em. The needle was the removed and an 11 blade scalpel was used to make a 1cm skin incision. A N fr peel-away sheath was advanced over the wire and into the venous system. A measurement was then made u sing the existing wire and live fluoroscopic guidance. The wire was then removed and the trimmed. The PICC was advanced through the peel-away sheath and into the venous system. The peel-away sheath was removed and the catheter was adhered to the patients arm with a stat lock. The catheter was then aspi rated and flushed and a sterile bandage was placed over the access site. A fluoroscopic spot image w as saved to PACS confirming the catheter tip within the superior vena cava. IMPRESSION: SUCCESSFUL PLACEMENT OF A 5 FR DUAL LUMEN 28 CM PICC IN THE RIGHT BASILIC VEIN. COMMENT: Patient medication list reviewed: Yes- Quality ID# [id number]:Eligible professional attests to doc umenting in the medical record they obtained, updated, or reviewed the patient's current medications. . Quality ID 145: Final reports for procedures using fluoroscopy that document radiation exposure alia celsa, or exposure time and number of fluorographic images (if radiation exposure indices are not avail able) Quality ID #76: The patient was prepped and draped using maximum sterile barrier technique including cap, mask, sterile gown, sterile gloves, a large sterile sheet, hand hygiene, and 2% Chlorhexidine fo r cutaneous antisepsis. When ultrasound is used, sterile ultrasound techniques are followed requiring sterile gel and sterile probes. TECHNICAL DOCUMENTATION: JOB ID: [id number] [employer]- All Rights Reserved Reading location - IP/workstation name: [email or web address]
[2017-12-16] MEDS: LORAZEPAM INJ 2 MG/1 ML VIAL IV PRN ×3 (16:03→18:37)
[2017-12-16] MEDS ORDERED: NORMAL SALINE 10 ML SDV (AFTER EACH USE) IV PRN (16:22)
[2017-12-16 17:06] LABS: ALBUMIN 3.3 g/dL (3.5-5.0); ANION GAP 17 (5-19); BLOOD UREA NITROGEN 8 mg/dL (7-20); CALCIUM 9.5 mg/dL (8.4-10.2); CARBON DIOXIDE 16 mmol/L (22-30); CHLORIDE 107 mmol/L (98-107); GLUCOSE 202 mg/dL (75-110); PHOSPHORUS 3.8 mg/dL (2.5-4.5); POTASSIUM 4.5 mmol/L (3.6-5.0); SODIUM 140.2 mmol/L (137-145)
[2017-12-16 17:08] LABS: VANCOMYCIN,TROUGH 6.1 ug/mL (5.0-20.0)
[2017-12-16] MEDS ORDERED: MORPHINE SULFATE 10 MG/ML INJ ONE (19:24)
[2017-12-16] MEDS ORDERED: MORPHINE SULFATE 10 MG/ML INJ IV ONE (20:00)
[2017-12-16 20:42] LABS: ALBUMIN 3.1 g/dL (3.5-5.0); ANION GAP 14 (5-19); BLOOD UREA NITROGEN 8 mg/dL (7-20); CALCIUM 9.1 mg/dL (8.4-10.2); CARBON DIOXIDE 19 mmol/L (22-30); CHLORIDE 105 mmol/L (98-107); GLUCOSE 303 mg/dL (75-110); PHOSPHORUS 3.4 mg/dL (2.5-4.5); POTASSIUM 4.2 mmol/L (3.6-5.0); SODIUM 138.3 mmol/L (137-145)
[2017-12-16] MEDS ORDERED: HALOPERIDOL LACTATE INJ 5 MG/1 ML VIAL IV PRN (23:02)
[2017-12-16] MEDS ORDERED: KETOROLAC TROMETHAMINE INJ/PF 30 MG/1 ML SDV IV PRN (23:02)
[2017-12-16] MEDS ORDERED: HALOPERIDOL LACTATE INJ 5 MG/1 ML VIAL IV ONE (23:02)
[2017-12-17] MEDS: AMPICILLIN SODIUM/SULBACTAM NA 3 GM in NORMAL SALINE 100 ML IV SCH ×2 (00:33→05:28)
[2017-12-17] MEDS: NORMAL SALINE 10 ML SDV (SCHEDULED) IV SCH ×2 (01:13→09:51)
[2017-12-17] MEDS: VANCOMYCIN HCL 1,000 MG in DEXTROSE 5%-WATER 250 ML IV SCH ×2 (02:09→10:04)
[2017-12-17 06:22] LABS: VANCOMYCIN,TROUGH 15.9 ug/mL (5.0-20.0)
--- NOTE | 2017-12-17 07:07 | PDOC PROGRESS REPORT ---
Subjective Progress Note for:: 12/17/17 Reason For Visit: DKA,WRIST LESION 27-year-old white female with a left wrist abscess status post I&D, poorly controlled diabetes, and some behavioral issues last night with an intention were discharged AGAINST MEDICAL ADVICE treated with medication. Cultures have not been fine underlying pathogen. Patient remains on empiric vancomycin. Blood glucose is between 216 and 323. Most communication this morning's with the patient's mother is the patient's relatively sedated. Physical Exam Vital Signs: Temp Pulse Resp BP Pulse Ox 37.1 C 101 H 16 117/63 100 12/17/17 04:33 12/17/17 04:33 12/17/17 04:33 12/17/17 04:33 12/17/17 04:33 Intake & Output 12/16/17 12/17/17 12/18/17 06:59 06:59 06:59 Intake Total 1900 2350 Output Total 1520 Balance 1900 830 Weight 75 kg General appearance: PRESENT: no acute distress Head exam: PRESENT: normocephalic Vascular exam: PRESENT: normal capillary refill Results Laboratory Results: 12/17/17 05:20 12/16/17 12/16/17 12/16/17 06:13 06:13 06:13 WBC 7.9 RBC 4.02 Hgb 12.6 D Hct 36.5 MCV 91 MCH 31.3 MCHC 34.4 RDW 12.2 Plt Count 357 Seg Neutrophils % 55.5 Lymphocytes % 34.1 Monocytes % 6.9 Eosinophils % 2.8 Basophils % 0.7 Absolute Neutrophils 4.4 Absolute Lymphocytes 2.7 Absolute Monocytes 0.5 Absolute Eosinophils 0.2 Absolute Basophils 0.1 Sodium Potassium Chloride Carbon Dioxide Anion Gap BUN Creatinine Est GFR ( Amer) Est GFR (Non-Af Amer) Glucose Calcium Phosphorus Albumin TSH < 0.01 L Free T4 2.11 Free T3 pg/mL 12/16/17 12/16/17 12/16/17 16:00 16:00 20:05 WBC RBC Hgb Hct MCV MCH MCHC RDW Plt Count Seg Neutrophils % Lymphocytes % Monocytes % Eosinophils % Basophils % Absolute Neutrophils Absolute Lymphocytes Absolute Monocytes Absolute Eosinophils Absolute Basophils Sodium 140.2 138.3 Potassium 4.5 4.2 Chloride 107 105 Carbon Dioxide 16 L 19 L Anion Gap 17 14 BUN 8 8 Creatinine 0.42 L 0.46 L Est GFR ( Amer) > 60 > 60 Est GFR (Non-Af Amer) > 60 > 60 Glucose 202 H 303 H Calcium 9.5 9.1 Phosphorus 3.8 3.4 Albumin 3.3 L 3.1 L TSH Free T4 Free T3 pg/mL 7.57 H 12/17/17 05:20 WBC RBC Hgb Hct MCV MCH MCHC RDW Plt Count Seg Neutrophils % Lymphocytes % Monocytes % Eosinophils % Basophils % Absolute Neutrophils Absolute Lymphocytes Absolute Monocytes Absolute Eosinophils Absolute Basophils Sodium Potassium Chloride Carbon Dioxide Anion Gap BUN Creatinine 0.44 L Est GFR ( Amer) > 60 Est GFR (Non-Af Amer) > 60 Glucose Calcium Phosphorus Albumin TSH Free T4 Free T3 pg/mL Impressions: Guidance Fluoroscopy 12/16/17 00:00 IMPRESSION: SUCCESSFUL PLACEMENT OF A 5 FR DUAL LUMEN 28 CM PICC IN THE RIGHT BASILIC VEIN. Interventional Vascular Procedure 12/16/17 00:00 IMPRESSION: SUCCESSFUL PLACEMENT OF A 5 FR DUAL LUMEN 28 CM PICC IN THE RIGHT BASILIC VEIN. PICC Line Insertion 12/16/17 00:00 IMPRESSION: SUCCESSFUL PLACEMENT OF A 5 FR DUAL LUMEN 28 CM PICC IN THE RIGHT BASILIC VEIN. Status: Imported from PACS Assessment & Plan - Diagnosis (1) Abscess of left forearm Is this a current diagnosis for this admission?: Yes Plan: 27-year-old white female with a left wrist abscess which appears to be improving at least according to the patient's mother. Continue empiric antibiotics and await for an underlying pathogen. Blood glucose control could be improved and patient's emotional instability can needs to continue to be managed. - Time Time Spent with patient: 15-24 minutes Anticipated discharge: Home Within: Other
[2017-12-17 07:08] LABS: ABSOLUTE EOSINOPHILS # (AUTO) 0.1 10^3/uL (0.0-0.6); ABSOLUTE LYMPHOCYTES (AUTO) 1.8 10^3/uL (0.5-4.7); ABSOLUTE MONOCYTES (AUTO) 0.5 10^3/uL (0.1-1.4); ABSOLUTE NEUT (AUTO) 4.3 10^3/uL (1.7-8.2); BASOPHILS % (AUTO) 0.5 % (0-2); EOSINOPHILS % (AUTO) 1.8 % (0-6); HEMATOCRIT 36.4 % (36.0-47.0); HEMOGLOBIN 12.3 g/dL (12.0-15.5); LYMPHOCYTES % (AUTO) 26.8 % (13-45); MEAN CORPUSCULAR HEMOGLOBIN 31.1 pg (27.0-33.4); MEAN CORPUSCULAR HGB CONC 33.8 g/dL (32.0-36.0); MEAN CORPUSCULAR VOLUME 92 fl (80-97); MONOCYTES % (AUTO) 7.3 % (3-13); PLATELET COUNT 369 10^3/uL (150-450); RED BLOOD COUNT 3.95 10^6/uL (3.72-5.28); RED CELL DISTRIBUTION WIDTH 12.6 % (11.5-14.0); SEGMENTED NEUTROPHILS % (AUTO) 63.6 % (42-78); TOTAL CELLS COUNTED % (AUTO) 100 %; WHITE BLOOD COUNT 6.8 10^3/uL (4.0-10.5)
[2017-12-17 07:09] LABS: ANION GAP 13 (5-19); BLOOD UREA NITROGEN 6 mg/dL (7-20); CALCIUM 9.3 mg/dL (8.4-10.2); CARBON DIOXIDE 20 mmol/L (22-30); CHLORIDE 108 mmol/L (98-107); GLUCOSE 290 mg/dL (75-110); SODIUM 140.9 mmol/L (137-145)
[2017-12-17 08:09] VITALS: BP 116/67
[2017-12-17] MEDS ORDERED: ZOLPIDEM TARTRATE 5 MG TABLET PO PRN (08:35)
[2017-12-17] MEDS ORDERED: INSULIN LISPRO 100 UNIT/ML 3 ML VIAL SUBCUT ONE ×2 (09:45→10:15)
[2017-12-17] MEDS ORDERED: INSULIN LISPRO 100 UNIT/ML 3 ML VIAL SUBCUT PRN (09:59)
[2017-12-17] MEDS: ENOXAPARIN SODIUM INJ 40 MG/0.4 ML DISP.SYRIN SUBCUT SCH (10:03)
[2017-12-17] MEDS: FAMOTIDINE INJ/PF 20 MG/2 ML SDV IV SCH (10:04)
[2017-12-17] MEDS: METHIMAZOLE 5 MG TABLET PO SCH (10:04)
[2017-12-17] MEDS: LORAZEPAM INJ 2 MG/1 ML VIAL IV PRN (10:14)
[2017-12-17] MEDS ORDERED: INSULIN LISPRO 100 UNIT/ML 3 ML VIAL SUBCUT SCH (11:00)
--- NOTE | 2017-12-17 11:16 | PDOC PROGRESS REPORT ---
Subjective Progress Note for:: 12/17/17 Subjective:: Continues to complain of pain in the center of her back around L1. Pain is more paraspinal than spinal, sometimes improved with positioning. No complaints of pain from her wrist Reason For Visit: DKA,WRIST LESION Physical Exam Vital Signs: Temp Pulse Resp BP Pulse Ox 98.0 F 91 20 116/67 100 12/17/17 07:58 12/17/17 07:58 12/17/17 07:58 12/17/17 07:58 12/17/17 07:58 Intake & Output 12/16/17 12/17/17 12/18/17 06:59 06:59 06:59 Intake Total 1900 2350 Output Total 1520 Balance 1900 830 Weight 165 lb 5.547 oz General appearance: PRESENT: no acute distress Respiratory exam: PRESENT: clear to auscultation andrea Cardiovascular exam: PRESENT: RRR GI/Abdominal exam: PRESENT: soft Extremities exam: PRESENT: other - No edema Neurological exam: PRESENT: awake Psychiatric exam: PRESENT: flat affect Skin exam: PRESENT: dry, warm, other - Wrist is freshly dressed. No drainage visible through the dressing. Otherwise not inspected Results Laboratory Results: 12/17/17 05:20 12/17/17 05:20 12/16/17 12/16/17 12/16/17 16:00 16:00 20:05 WBC RBC Hgb Hct MCV MCH MCHC RDW Plt Count Seg Neutrophils % Lymphocytes % Monocytes % Eosinophils % Basophils % Absolute Neutrophils Absolute Lymphocytes Absolute Monocytes Absolute Eosinophils Absolute Basophils Sodium 140.2 138.3 Potassium 4.5 4.2 Chloride 107 105 Carbon Dioxide 16 L 19 L Anion Gap 17 14 BUN 8 8 Creatinine 0.42 L 0.46 L Est GFR ( Amer) > 60 > 60 Est GFR (Non-Af Amer) > 60 > 60 Glucose 202 H 303 H Calcium 9.5 9.1 Phosphorus 3.8 3.4 Albumin 3.3 L 3.1 L Free T3 pg/mL 7.57 H 12/17/17 12/17/17 12/17/17 05:20 05:20 05:20 WBC 6.8 RBC 3.95 Hgb 12.3 Hct 36.4 MCV 92 MCH 31.1 MCHC 33.8 RDW 12.6 Plt Count 369 Seg Neutrophils % 63.6 Lymphocytes % 26.8 Monocytes % 7.3 Eosinophils % 1.8 Basophils % 0.5 Absolute Neutrophils 4.3 Absolute Lymphocytes 1.8 Absolute Monocytes 0.5 Absolute Eosinophils 0.1 Absolute Basophils 0.0 Sodium 140.9 Potassium 4.0 Chloride 108 H Carbon Dioxide 20 L Anion Gap 13 BUN 6 L Creatinine 0.44 L Est GFR ( Amer) > 60 > 60 Est GFR (Non-Af Amer) > 60 > 60 Glucose 290 H Calcium 9.3 Phosphorus Albumin Free T3 pg/mL Impressions: Guidance Fluoroscopy 12/16/17 00:00 IMPRESSION: SUCCESSFUL PLACEMENT OF A 5 FR DUAL LUMEN 28 CM PICC IN THE RIGHT BASILIC VEIN. Interventional Vascular Procedure 12/16/17 00:00 IMPRESSION: SUCCESSFUL PLACEMENT OF A 5 FR DUAL LUMEN 28 CM PICC IN THE RIGHT BASILIC VEIN. PICC Line Insertion 12/16/17 00:00 IMPRESSION: SUCCESSFUL PLACEMENT OF A 5 FR DUAL LUMEN 28 CM PICC IN THE RIGHT BASILIC VEIN. Assessment & Plan - Diagnosis (1) Diabetic ketoacidosis Qualifiers: Diabetes mellitus type: type 1 Diabetes mellitus complication detail: without coma Qualified Code(s): E10.10 - Type 1 diabetes mellitus with ketoacidosis without coma Is this a current diagnosis for this admission?: Yes Plan: CO2 remains marginal, blood sugars continue to run 200s. I will increase her sliding scale insulin. (2) Abscess of left forearm Is this a current diagnosis for this admission?: Yes Plan: Status post washout. Continue antibiotics for now pending cultures (3) Hyperthyroidism Is this a current diagnosis for this admission?: Yes Plan: Methimazole was resumed. She has been out of it for "sometime". Markedly elevated T3 noted with a normal T4 (4) Anxiety Is this a current diagnosis for this admission?: Yes Plan: Her level of anxiety is out of proportion to her current problem. May be related to hyperthyroidism. Treat with benzodiazepines for now (5) Back pain Qualifiers: Back pain location: thoracic back pain Chronicity: acute Back pain laterality: midline Qualified Code(s): M54.6 - Pain in thoracic spine Is this a current diagnosis for this admission?: Yes Plan: Strongly suspect this is muscular, but given her absence I think we need to ensure she does not have hematogenous spread to her spine. I will get an MRI.
--- NOTE | 2017-12-17 15:21 | PDOC DISCHARGE SUMMARY ---
General - Admit/Disc Date/PCP Admission Date/Primary Care Provider: 12/15/17 13:44 МАРИЯ HUDDLESTON MD Discharge Date: 12/17/17 - Discharge Diagnosis (1) Diabetic ketoacidosis Is this a current diagnosis for this admission?: Yes Summary: Resolved with an insulin drip and vigorous hydration (2) Abscess of left forearm Is this a current diagnosis for this admission?: Yes Summary: Status post washout by surgery. Patient was being treated with IV antibiotics. PICC line had been placed due to the difficulty obtaining IV access. She has been getting ongoing wound care. She decided to leave AGAINST MEDICAL ADVICE. The PICC line was discontinued and she was escorted out accompanied by her mother. As she left AMA no prescriptions were provided. (3) Hyperthyroidism Is this a current diagnosis for this admission?: Yes Summary: She had been noncompliant with her methimazole, that was restarted this admission. As she left AMA she got no prescriptions (4) Anxiety Is this a current diagnosis for this admission?: Yes Summary: Out of proportion to evident medical issues. Generally acted like she was withdrawing from something, had a very high opioid tolerance, though she denied any drug abuse. (5) Back pain Is this a current diagnosis for this admission?: Yes Summary: Most consistent with muscular strain. But because of her abscess I had ordered an MRI that had not been accomplished by the time she left AGAINST MEDICAL ADVICE. - Additional Information Resuscitation Status: Full Code Home Medications: Insulin Aspart [Novolog Insulin (Aspart) 100 unit/mL] 0 unit SUBCUT .SLIDING SCALE PRN 07/26/12 Cephalexin Monohydrate [Keflex 500 mg Capsule] 500 mg PO Q6 12/15/17 Insulin Aspart [Novolog Insulin 100 Unit/1 ml 10 ml] 8 unit SUBCUT AC 12/15/17 Insulin Glargine,Hum.rec.anlog [Lantus Solostar] 40 unit SQ NOON 12/15/17 Methimazole [Tapazole] 10 mg PO DAILY 12/15/17 History of Present Illness Patient complains of: Nausea and vomiting History of Present Illness: NEIL LONG is a 27 year old female with type 1 diabetes. She injured her left wrist on a car door about 4 days ago and it is subsequently become red and swollen and is now draining. Her blood sugar has been over 300. Today she developed intractable nausea and vomiting and came into the emergency room. She denies fevers and chills. She denies any loss of sensation hand or significant pain with movement of her wrist. Currently she is complaining of pain in the back of her head as well as nausea. She received 50 mcg of fentanyl in the emergency department without significant effect. Hospital Course Hospital Course: She was empirically started on vancomycin and Unasyn. Orthopedics was consulted and they proceeded to take her to the OR. Her abscess was opened washed out and packed. Cultures are pending. Throughout her stay she has been very agitated complaining of migratory pain and requesting more pain medication. Today she decided to leave AGAINST MEDICAL ADVICE. I explained to her and her mother that I think this will have a very bad outcome. She left in the company of her mother. Physical Exam Vital Signs: Temp Pulse Resp BP Pulse Ox 98.0 F 91 20 116/67 100 12/17/17 12:00 12/17/17 12:00 12/17/17 12:00 12/17/17 07:58 12/17/17 12:00 Intake & Output 12/16/17 12/17/17 12/18/17 06:59 06:59 06:59 Intake Total 1900 2350 Output Total 1520 Balance 1900 830 Weight 165 lb 5.547 oz Results Laboratory Results: 12/17/17 05:20 12/17/17 05:20 12/16/17 12/16/17 12/16/17 16:00 16:00 20:05 WBC RBC Hgb Hct MCV MCH MCHC RDW Plt Count Seg Neutrophils % Lymphocytes % Monocytes % Eosinophils % Basophils % Absolute Neutrophils Absolute Lymphocytes Absolute Monocytes Absolute Eosinophils Absolute Basophils Sodium 140.2 138.3 Potassium 4.5 4.2 Chloride 107 105 Carbon Dioxide 16 L 19 L Anion Gap 17 14 BUN 8 8 Creatinine 0.42 L 0.46 L Est GFR ( Amer) > 60 > 60 Est GFR (Non-Af Amer) > 60 > 60 Glucose 202 H 303 H Calcium 9.5 9.1 Phosphorus 3.8 3.4 Albumin 3.3 L 3.1 L Free T3 pg/mL 7.57 H 12/17/17 12/17/17 12/17/17 05:20 05:20 05:20 WBC 6.8 RBC 3.95 Hgb 12.3 Hct 36.4 MCV 92 MCH 31.1 MCHC 33.8 RDW 12.6 Plt Count 369 Seg Neutrophils % 63.6 Lymphocytes % 26.8 Monocytes % 7.3 Eosinophils % 1.8 Basophils % 0.5 Absolute Neutrophils 4.3 Absolute Lymphocytes 1.8 Absolute Monocytes 0.5 Absolute Eosinophils 0.1 Absolute Basophils 0.0 Sodium 140.9 Potassium 4.0 Chloride 108 H Carbon Dioxide 20 L Anion Gap 13 BUN 6 L Creatinine 0.44 L Est GFR ( Amer) > 60 > 60 Est GFR (Non-Af Amer) > 60 > 60 Glucose 290 H Calcium 9.3 Phosphorus Albumin Free T3 pg/mL Impressions: Guidance Fluoroscopy 12/16/17 00:00 IMPRESSION: SUCCESSFUL PLACEMENT OF A 5 FR DUAL LUMEN 28 CM PICC IN THE RIGHT BASILIC VEIN. Interventional Vascular Procedure 12/16/17 00:00 IMPRESSION: SUCCESSFUL PLACEMENT OF A 5 FR DUAL LUMEN 28 CM PICC IN THE RIGHT BASILIC VEIN. PICC Line Insertion 12/16/17 00:00 IMPRESSION: SUCCESSFUL PLACEMENT OF A 5 FR DUAL LUMEN 28 CM PICC IN THE RIGHT BASILIC VEIN. Qualifiers - * PATIENT BEING DISCHARGED WITH ANY OF THE FOLLOWING DIAGNOSIS: No
== END 2017-12-17 12:17 | disposition left against medical advice (07) | DRG 982 ==
LOC: ER 10:33 → UNDOADMIN 13:44 → EH 13:44 → 3W 17:55
PROVIDERS: ADMIT Internal Medicine; ATTEND Internal Medicine
PROC: 02HV33Z Insertion of Infusion Device into Superior Vena Cava, Percutaneous Approach (ICD-10-PCS; 2017-12-16)
PROC: 0KBB0ZZ Excision of Left Lower Arm and Wrist Muscle, Open Approach (ICD-10-PCS; principal; 2017-12-16 12:15)
DX: E10.10 Type 1 diabetes mellitus with ketoacidosis without coma (principal); L02.414 Cutaneous abscess of left upper limb; F17.200 Nicotine dependence, unspecified, uncomplicated; F41.9 Anxiety disorder, unspecified; K21.9 Gastro-esophageal reflux disease without esophagitis; E05.90 Thyrotoxicosis, unspecified without thyrotoxic crisis or storm; I87.2 Venous insufficiency (chronic) (peripheral); Z79.4 Long term (current) use of insulin; Z86.14 Personal history of Methicillin resistant Staphylococcus aureus infection; Z85.41 Personal history of malignant neoplasm of cervix uteri; Z82.49 Family history of ischemic heart disease and other diseases of the circulatory system; Z83.3 Family history of diabetes mellitus; Z88.6 Allergy status to analgesic agent; Z91.013 Allergy to seafood
CPT/HCPCS: 36415; 36569; 400; 76937; 77001; 80048; 80053; 80069; 80202; 80307; 81001; 82565; 82803; 82962; 83036; 83735; 84439; 84443; 84481; 85025; 87040; 87070; 87075; 87077; 87186; 87205; 96361; 96365; 96367; 96375; 99285; J0131; J0295; J1170; J1630; J1642; J1650; J1815; J1885; J2060; J2250; J2270; J2405; J2543; J2704; J3010; J3370; J3480; J3490; J7030; J7060; S0028

== ENCOUNTER 2020-04-19 16:23 | Inpatient (IN) | payer SELFPAY ==
[2020-04-19] MEDS ORDERED: NORMAL SALINE 1000 ML 1,000 ML IV ONE ×2 (17:13→23:14)
[2020-04-19] MEDS ORDERED: ONDANSETRON HCL INJ/PF 4 MG/2 ML SDV IV ONE (17:15)
--- NOTE | 2020-04-19 17:17 | ER Document Report ---
ED Medical Screen (RME) - General Stated Complaint: POSSIBLE DKA/BLOOD SUGAR ISSUE Time Seen by Provider: 04/19/20 17:12 Primary Care Provider: МАРИЯ HUDDLESTON MD [Primary Care Provider] - Follow up as needed Notes: HPI: 30-year-old female who is an insulin-dependent diabetic presenting for nausea vomiting with elevated blood sugars. Patient states this is how she normally presents with DKA no chest pain no shortness of breath no abdominal pain PHYSICAL EXAMINATION: Patient appears unwell. Dry mucous membranes. Tachycardic with heart rate 127. Lung sounds are clear to auscultation. Accu- Chek 513 I have greeted and performed a rapid initial assessment of this patient. A comprehensive ED assessment and evaluation of the patient, analysis of test results and completion of medical decision making process will be conducted by an additional ED providers. TRAVEL OUTSIDE OF THE [place] IN LAST 30 DAYS: No - Related Data Allergies/Adverse Reactions: cefaclor [From Ceclor] Allergy (Unknown, Verified 12/15/17 11:22) codeine [Codeine] Allergy (Verified 12/15/17 11:22) Shellfish * Allergy (Verified 12/15/17 11:22) Past Medical History - Past Medical History Cardiac Medical History: Denies: Hx Coronary Artery Disease, Hx Heart Attack, Hx Hypertension Pulmonary Medical History: Reports: Hx Asthma Denies: Hx Bronchitis, Hx COPD, Hx Pneumonia Neurological Medical History: Reports: Hx Migraine. Denies: Hx Cerebrovascular Accident, Hx Seizures Endocrine Medical History: Reports: Hx Diabetes Mellitus Type 1 Renal/ Medical History: Denies: Hx Peritoneal Dialysis Malignancy Medical History: Reports: Hx Cervical Cancer - Precancerous cells on a LEEP GI Medical History: Reports: Hx Gastroesophageal Reflux Disease Musculoskeltal Medical History: Reports Hx Arthritis, Reports Hx Musculoskeletal Deformity, Reports Hx Musculoskeletal Trauma Skin Medical History: Reports Hx MRSA Psychiatric Medical History: Reports: Hx Anxiety Traumatic Medical History: Reports: Hx Fractures - All fingers, both feet and ankles, right leg, nose, both wrist and right Infectious Medical History: Reports: Hx MRSA Past Surgical History: Reports: Hx Adenoidectomy, Hx Gynecologic Surgery - LEEP, Hx Myringotomy, Hx Oral Surgery - [place] teeth, Hx Orthopedic Surgery - Right anterior cruciate ligament repair, Hx Tonsillectomy. Denies: Hx Pacemaker - Immunizations Immunizations up to date: Yes Hx Diphtheria, Pertussis, Tetanus Vaccination: Yes - "ATLEAST 5 YEARS AGO" Physical Exam - Vital signs Vitals: Temp Pulse Resp BP Pulse Ox 98.0 F 127 H 18 146/73 H 100 04/19/20 16:40 04/19/20 16:40 04/19/20 16:40 04/19/20 16:40 04/19/20 16:40 Course - Vital Signs Vital signs: Temp Pulse Resp BP Pulse Ox 98.0 F 127 H 18 146/73 H 100 04/19/20 16:40 04/19/20 16:40 04/19/20 16:40 04/19/20 16:40 04/19/20 16:40 Doctor's Discharge - Discharge Referrals: МАРИЯ HUDDLESTON MD [Primary Care Provider] - Follow up as needed
[2020-04-19] MEDS ORDERED: RINGERS SOLUTION,LACTATED 2,000 ML IV ONE (17:41)
[2020-04-19 18:03] LABS: VENOUS BLOOD BASE EXCESS -19.3 mmol/L; VENOUS BLOOD HCO3 8.4 mmol/L (20-32); VENOUS BLOOD PCO2 26.5 mmHg (35-63)
[2020-04-19 18:05] LABS: VENOUS BLOOD PH 7.12 (7.30-7.42)
[2020-04-19 18:09] LABS: HEMATOCRIT 47.2 % (36.0-47.0); HEMOGLOBIN 15.3 g/dL (12.0-15.5); MEAN CORPUSCULAR HEMOGLOBIN 31.8 pg (27.0-33.4); MEAN CORPUSCULAR HGB CONC 32.4 g/dL (32.0-36.0); MEAN CORPUSCULAR VOLUME 98 fl (80-97); PLATELET COUNT 427 10^3/uL (150-450); RED CELL DISTRIBUTION WIDTH 13.4 % (11.5-14.0); WHITE BLOOD COUNT 22.3 10^3/uL (4.0-10.5)
[2020-04-19 18:12] LABS: APPEARANCE,URINE CLEAR; BILIRUBIN,URINE NEGATIVE (NEGATIVE); COLOR,URINE STRAW; GLUCOSE, URINE >=500 mg/dL (NEGATIVE); KETONES,URINE 80 mg/dL (NEGATIVE); LEUKOCYTE ESTERASE,URINE NEGATIVE (NEGATIVE); NITRITE,URINE NEGATIVE (NEGATIVE); PROTEIN,URINE NEGATIVE (NEGATIVE); UROBILINOGEN,URINE NEGATIVE mg/dL (<2.0)
[2020-04-19 18:18] LABS: ALBUMIN 4.8 g/dL (3.5-5.0); ALKALINE PHOSPHATASE 149 U/L (38-126); ASPARTATE AMINO TRANSFERASE 23 U/L (14-36); BILIRUBIN,DIRECT 0.5 mg/dL (0.0-0.4); BILIRUBIN,TOTAL 0.5 mg/dL (0.2-1.3); BLOOD UREA NITROGEN 10 mg/dL (7-20); CALCIUM 10.4 mg/dL (8.4-10.2); CHLORIDE 101 mmol/L (98-107); POTASSIUM 4.6 mmol/L (3.6-5.0); TOTAL PROTEIN 8.6 g/dL (6.3-8.2)
[2020-04-19 18:27] LABS: ABSOLUTE LYMPHOCYTES# (MANUAL) 2.2 10^3/uL (0.5-4.7); ABSOLUTE MONOCYTES # (MANUAL) 0.4 10^3/uL (0.1-1.4); BASOPHILS % (MANUAL) 0 % (0-2); EOSINOPHILS % (MANUAL) 0 % (0-6); LYMPHOCYTES % (MANUAL) 10 % (13-45); MONOCYTES % (MANUAL) 2 % (3-13); SEGMENTED NEUTROPHILS % (MAN) 88 % (42-78); TOTAL CELLS COUNTED 100
[2020-04-19 18:28] LABS: ANION GAP 32 (5-19); RBC MORPHOLOGY COMMENT NORMO-CYTIC/CHROMIC
[2020-04-19 18:29] LABS: CARBON DIOXIDE 8 mmol/L (22-30); GLUCOSE 592 mg/dL (75-110); PLATELET CLUMPS PRESENT; PLATELET COMMENT ADEQUATE
[2020-04-19] MEDS ORDERED: RINGERS SOLUTION,LACTATED 1,000 ML IV ONE (18:55)
[2020-04-19] MEDS ORDERED: PROMETHAZINE HCL INJ 25 MG/1 ML VIAL IV ONE (18:55)
[2020-04-19] MEDS ORDERED: CLINDAMYCIN 300 MG/D5W RTU 300 MG/50 ML RTUPB IV ONE (19:00)
--- NOTE | 2020-04-19 19:01 | ER Document Report ---
ED Blood Sugar Problem - General Chief Complaint: High Blood Sugar Stated Complaint: POSSIBLE DKA/BLOOD SUGAR ISSUE Time Seen by Provider: 04/19/20 17:12 Primary Care Provider: МАРИЯ HUDDLESTON MD [Primary Care Provider] - Follow up as needed Notes: Patient is a 30-year-old insulin-dependent diabetic female who presents the emergency department with a chief complaint of nausea, vomiting, and high blood sugars. Patient states that she feels like she is in DKA. She denies any abdominal pain. Denies any dysuria. Patient also noted that she had some swelling noted to her right hand. She states that when she puts her arm down, the swelling gets worse. TRAVEL OUTSIDE OF THE [place] IN LAST 30 DAYS: No - Related Data Allergies/Adverse Reactions: cefaclor [From Ceclor] Allergy (Unknown, Verified 12/15/17 11:22) codeine [Codeine] Allergy (Verified 12/15/17 11:22) Shellfish * Allergy (Verified 12/15/17 11:22) Past Medical History - Social History Smoking Status: Current Every Day Smoker Frequency of alcohol use: None Drug Abuse: None Family History: Reviewed & Not Pertinent, Arthritis, CAD, CVA, DM, Hyperlipidemia, Hypertension, Malignancy, Thyroid Disfunction - Past Medical History Cardiac Medical History: Denies: Hx Coronary Artery Disease, Hx Heart Attack, Hx Hypertension Pulmonary Medical History: Reports: Hx Asthma Denies: Hx Bronchitis, Hx COPD, Hx Pneumonia Neurological Medical History: Reports: Hx Migraine. Denies: Hx Cerebrovascular Accident, Hx Seizures Endocrine Medical History: Reports: Hx Diabetes Mellitus Type 1 Renal/ Medical History: Denies: Hx Peritoneal Dialysis Malignancy Medical History: Reports: Hx Cervical Cancer - Precancerous cells on a LEEP GI Medical History: Reports: Hx Gastroesophageal Reflux Disease Musculoskeletal Medical History: Reports Hx Arthritis, Reports Hx Musculoskeletal Deformity, Reports Hx Musculoskeletal Trauma Skin Medical History: Reports Hx MRSA Psychiatric Medical History: Reports: Hx Anxiety Traumatic Medical History: Reports: Hx Fractures - All fingers, both feet and ankles, right leg, nose, both wrist and right Infectious Medical History: Reports: Hx MRSA Past Surgical History: Reports: Hx Adenoidectomy, Hx Gynecologic Surgery - LEEP, Hx Myringotomy, Hx Oral Surgery - [place] teeth, Hx Orthopedic Surgery - Right anterior cruciate ligament repair, Hx Tonsillectomy. Denies: Hx Pacemaker - Immunizations Immunizations up to date: Yes Hx Diphtheria, Pertussis, Tetanus Vaccination: Yes - "ATLEAST 5 YEARS AGO" Hx Pneumococcal Vaccination: 04/06/14 Review of Systems - Review of Systems Notes: REVIEW OF SYSTEMS: CONSTITUTIONAL : Denies recent illness. Denies recent unintentional weight loss. Denies fever, chills, or sweats. EENT: Denies eye, ear, throat, or mouth pain, discharge, or symptoms. Denies nasal or sinus congestion. CARDIOVASCULAR: Denies chest pain. RESPIRATORY: Denies shortness of breath, cough, congestion, difficulty breathing, or wheezing. GASTROINTESTINAL: See HPI. GENITOURINARY: Denies difficulty urinating, burning, blood in urine, urgency or frequency. MUSCULOSKELETAL: Denies neck and back pain. See HPI. SKIN: Denies rash, itchiness, or lesions HEMATOLOGIC : Denies easy bruising or bleeding. LYMPHATIC: Denies swollen, painful, enlarged glands. NEUROLOGICAL: Denies no numbness or tingling denies weakness. Denies headache. Denies altered mental status. Denies alteration in speech. PSYCHIATRIC: Denies stress, anxiety, alteration in sleep patterns, or depression. All other systems reviewed and negative. Physical Exam - Vital signs Vitals: Temp Pulse Resp BP Pulse Ox 98.0 F 127 H 18 146/73 H 100 04/19/20 16:40 04/19/20 16:40 04/19/20 16:40 04/19/20 16:40 04/19/20 16:40 - Notes Notes: PHYSICAL EXAMINATION: GENERAL: Appears lethargic, no acute distress. HEAD: Normocephalic, atraumatic. EYES: PERRL, conjunctiva normal, all extraocular movements intact, sclera nonicteric ENT: Dry mucous membranes. NECK: Supple, no noticeable swelling, redness, rash. Normal range of motion. LUNGS: Equal breath sounds bilaterally and clear to auscultation. No wheezes rales or rhonchi. CARDIOVASCULAR: S1-S2, regular rate, regular rhythm. Radial pulses 2+, normal. ABDOMEN: Normoactive bowel sounds. Soft, nontender, no guarding, no rebound tenderness, and no masses palpated. EXTREMITIES: Normal strength and range of motion. No cyanosis. Erythema noted to the right dorsal hand NEUROLOGICAL: Moves all extremities upon command. Strength 5/5 in all extremities. PSYCH: Normal mood, normal affect. SKIN: Warm, dry. Normal skin turgor. Course - Re-evaluation Re-evalutation: 04/19/20 19:32 Hematology shows a white blood cell count of 22,300 with a left shift, most likely due to her cellulitis in her right hand. Patient was started on clindamycin. Blood gas shows metabolic acidosis, due to her DKA. Anion gap is 32. CO2 is 8. Glucose is 592. Patient will be started on insulin drip. She received 2 L of fluid here in the emergency department. Patient does have ketones in her urine and glucose. Blood glucose is 506 despite receiving 2 L of lactated Ringer's. 04/19/20 20:08 I called SANKET Cooley from ICU. There are no beds in ICU. Will call Dr. Asher from hospitalist service. 04/19/20 20:[address] Asher, the hospitalist, patient will be admitted to [facility]. - Vital Signs Vital signs: Temp Pulse Resp BP Pulse Ox 98.0 F 127 H 22 H 146/75 H 100 04/19/20 16:40 04/19/20 16:40 04/19/20 19:01 04/19/20 19:01 04/19/20 19:01 - Laboratory Result Diagrams: 04/19/20 17:49 04/19/20 17:49 Laboratory results interpreted by me: 04/19/20 04/19/20 04/19/20 17:49 17:49 17:49 WBC 22.3 H Hct 47.2 H MCV 98 H Seg Neuts % (Manual) 88 H Lymphocytes % (Manual) 10 L Monocytes % (Manual) 2 L Abs Neuts (Manual) 19.6 H VBG pH 7.12 L* VBG pCO2 26.5 L VBG HCO3 8.4 L Carbon Dioxide 8 L* Anion Gap 32 H Glucose 592 H* Calcium 10.4 H Direct Bilirubin 0.5 H Alkaline Phosphatase 149 H Total Protein 8.6 H Urine Glucose (UA) Urine Ketones 04/19/20 17:49 WBC Hct MCV Seg Neuts % (Manual) Lymphocytes % (Manual) Monocytes % (Manual) Abs Neuts (Manual) VBG pH VBG pCO2 VBG HCO3 Carbon Dioxide Anion Gap Glucose Calcium Direct Bilirubin Alkaline Phosphatase Total Protein Urine Glucose (UA) >=500 H Urine Ketones 80 H Discharge - Discharge Clinical Impression: Cellulitis and abscess of hand Diabetic ketoacidosis Qualifiers: Diabetes mellitus type: type 1 Diabetes mellitus complication detail: without c mirtha Qualified Code(s): E10.10 - Type 1 diabetes mellitus with ketoacidosis without coma Nausea and vomiting Qualifiers: Vomiting type: unspecified Vomiting Intractability: unspecified Qualified Code(s): R11.2 - Nausea with vomiting, unspecified Sepsis Qualifiers: Sepsis type: sepsis due to unspecified organism Sepsis acute organ dysfunction status: unspecified Qualified Code(s): A41.9 - Sepsis, unspecified organism Condition: Fair Disposition: ADMITTED INPATIENT Admitting Provider: [facility] (Hospitalist) Unit Admitted: IMCU Referrals: МАРИЯ HUDDLESTON MD [Primary Care Provider] - Follow up as needed
[2020-04-19] MEDS ORDERED: POTASSI CL 20 MEQ/NS 1L 1,000 ML IV PRN (19:27)
[2020-04-19] MEDS ORDERED: NORMAL SALINE 100 ML with INSULIN REGULAR, HUMAN 100 UNIT IV PRN ×4 (19:27→20:34)
[2020-04-19] MEDS ORDERED: INSULIN REG, HUMAN 100 UNIT/ML 3 ML VIAL (PYX) ONE (19:57)
[2020-04-19] MEDS ORDERED: METOCLOPRAMIDE HCL INJ/PF 10 MG/2 ML SDV IV ONE (20:10)
[2020-04-19] MEDS ORDERED: DEXTROSE 5%-WATER 1000 ML 1,000 ML with SODIUM BICARBONATE 150 MEQ IV PRN ×4 (20:31→22:01)
[2020-04-19] MEDS ORDERED: GLUCAGON,HUMAN RECOMB 1 MG INJ IM PRN (20:34)
[2020-04-19] MEDS ORDERED: NORMAL SALINE 1000 ML 1,000 ML IV PRN (20:34)
[2020-04-19] MEDS ORDERED: DEXTROSE 40% GEL 15 GM TUBE PO PRN ×2 (20:34)
[2020-04-19] MEDS ORDERED: DEXTROSE 50%-WATER 25 GM/50 ML DISP.SYRIN IV PRN ×2 (20:34)
[2020-04-19] MEDS ORDERED: TEMAZEPAM 7.5 MG CAPSULE PO PRN (20:35)
[2020-04-19] MEDS ORDERED: ACETAMINOPHEN 325 MG TABLET PO PRN (20:35)
[2020-04-19] MEDS ORDERED: IPRATROPIUM/ALBUTEROL 0.5-2.5 MG/3 ML AMPUL NEB PRN (20:35)
[2020-04-19] MEDS ORDERED: METOPROLOL TARTRATE PF/INJ 5 MG/5 ML SDV IV PRN (20:39)
[2020-04-19] MEDS ORDERED: MORPHINE SULFATE 10 MG/ML INJ IV PRN (20:39)
[2020-04-19] MEDS ORDERED: HYDRALAZINE HCL INJ/PF 20 MG/1 ML SDV IV PRN (20:39)
--- NOTE | 2020-04-19 21:22 | PDOC H&P ---
History of Present Illness Admission Date/PCP: 04/19/20 20:44 МАРИЯ PALMER MD History of Present Illness: NEIL LONG is a 30 year old female past medical history of type 1 di abetes, asthma, hyperthyroidism, chronic back pain, presenting to ED complaining of nausea, vomiting, abdominal pain x1 day. In ED she was noted to be in DKA was a started on DKA protocol and hospital was consulted for admission. On my encounter patient very somnolent and does not provide much history, her friend who is accompanying her is the source of history. As per friend patient was doing fine until yesterday, this morning she started having nausea, vomiting and abdominal pain. As per friend patient is very compliant with her diabetic management and has not felt sick lately. Patient also noted to have right hand swelling and erythema however as per friend patient has not had any trauma, tick or bug bite, or any history of IV drug abuse. Past Medical History Cardiac Medical History: Denies: Coronary Artery Disease, Myocardial Infarction, Hypertension Pulmonary Medical History: Reports: Asthma Denies: Bronchitis, Chronic Obstructive Pulmonary Disease (COPD), Pneumonia Neurological Medical History: Reports: Migraine Denies: Seizures Endocrine Medical History: Reports: Diabetes Mellitus Type 1 Malignancy Medical History: Reports: Cervical Cancer - Precancerous cells on a LEEP GI Medical History: Reports: Gastroesophageal Reflux Disease Musculoskeltal Medical History: Reports: Arthritis Hematology: Denies: Anemia Infectious Medical History: Reports: Methicillin-Resistant Staph Aureus Past Surgical History Past Surgical History: Reports: Adenoidectomy, Orthopedic Surgery - Right anteri or cruciate ligament repair, Tonsillectomy Denies: Pacemaker Social History Smoking Status: Current Every Day Smoker Frequency of Alcohol Use: Occasional Hx Recreational Drug Use: No Hx Prescription Drug Abuse: No Family History Family History: Reviewed & Not Pertinent, Arthritis, CAD, CVA, DM, Hyperlipidemia, Hypertension, Malignancy, Thyroid Disfunction Parental Family History Reviewed: Yes Children Family History Reviewed: Yes Sibling(s) Family History Reviewed.: Yes Medication/Allergy Home Medications: Insulin Aspart [Novolog Insulin (Aspart) 100 unit/mL] 0 unit SUBCUT .SLIDING SCALE PRN 07/26/12 Cephalexin Monohydrate [Keflex 500 mg Capsule] 500 mg PO Q6 12/15/17 Insulin Aspart [Novolog Insulin 100 Unit/1 ml 10 ml] 8 unit SUBCUT AC 12/15/17 Insulin Glargine,Hum.rec.anlog [Lantus Solostar] 40 unit SQ NOON 12/15/17 Methimazole [Tapazole] 10 mg PO DAILY 12/15/17 Allergies/Adverse Reactions: cefaclor [From Ceclor] Allergy (Unknown, Verified 12/15/17 11:22) codeine [Codeine] Allergy (Verified 12/15/17 11:22) Shellfish * Allergy (Verified 12/15/17 11:22) Review of Systems ROS unobtainable: Due to mental status Physical Exam Vital Signs: Temp Pulse Resp BP Pulse Ox 98.0 F 127 H 22 H 146/75 H 100 04/19/20 16:40 04/19/20 16:40 04/19/20 19:01 04/19/20 19:01 04/19/20 19:01 Intake & Output 04/18/20 04/19/20 04/20/20 06:59 06:59 06:59 Intake Total 2049 Balance 2049 Weight 72.575 kg General appearance: PRESENT: obese, other - Moderate distress Head exam: PRESENT: atraumatic, normocephalic Respiratory exam: PRESENT: accessory muscle use, clear to auscultation andrea, tachypnea. ABSENT: rales, rhonchi, wheezes Cardiovascular exam: PRESENT: RRR, tachycardia. ABSENT: diastolic murmur, rubs, systolic murmur Pulses: PRESENT: normal dorsalis pedis pul GI/Abdominal exam: PRESENT: normal bowel sounds, soft. ABSENT: distended, guarding, mass, organolmegaly, rebound, tenderness Musculoskeletal exam: PRESENT: other - Right hand dorsal aspect erythema and swelling, no sign of skin compromise, no discharge, neurovascularly intact. Neurological exam: PRESENT: CN II-XII grossly intact, other - Somnolent, easily arousable, follows command, moves all extremities Skin exam: PRESENT: dry, intact, warm. ABSENT: cyanosis, rash Results Laboratory Results: 04/19/20 17:49 04/19/20 17:49 04/19/20 04/19/20 04/19/20 17:49 17:49 17:49 WBC 22.3 H RBC 4.80 Hgb 15.3 Hct 47.2 H MCV 98 H MCH 31.8 MCHC 32.4 RDW 13.4 Plt Count 427 Seg Neutrophils % Not Reportable VBG pH 7.12 L* VBG pCO2 26.5 L VBG HCO3 8.4 L VBG Base Excess -19.3 Sodium 141.3 Potassium 4.6 Chloride 101 Carbon Dioxide 8 L* Anion Gap 32 H BUN 10 Creatinine 0.69 Est GFR ( Amer) > 60 Glucose 592 H* Calcium 10.4 H Magnesium 1.9 Total Bilirubin 0.5 AST 23 Alkaline Phosphatase 149 H Total Protein 8.6 H Albumin 4.8 Lipase 28.1 Urine Color Urine Appearance Urine pH Ur Specific [place] Urine Protein Urine Glucose (UA) Urine Ketones Urine Blood Urine Nitrite Ur Leukocyte Esterase Urine WBC (Auto) 04/19/20 17:49 WBC RBC Hgb Hct MCV MCH MCHC RDW Plt Count Seg Neutrophils % VBG pH VBG pCO2 VBG HCO3 VBG Base Excess Sodium Potassium Chloride Carbon Dioxide Anion Gap BUN Creatinine Est GFR ( Amer) Glucose Calcium Magnesium Total Bilirubin AST Alkaline Phosphatase Total Protein Albumin Lipase Urine Color STRAW Urine Appearance CLEAR Urine pH 5.0 Ur Specific [place] 1.020 Urine Protein NEGATIVE Urine Glucose (UA) >=500 H Urine Ketones 80 H Urine Blood NEGATIVE Urine Nitrite NEGATIVE Ur Leukocyte Esterase NEGATIVE Urine WBC (Auto) 0 Assessment and Plan - Diagnosis (1) Diabetic ketoacidosis Qualifiers: Diabetes mellitus type: type 1 Diabetes mellitus complication detail: without coma Qualified Code(s): E10.10 - Type 1 diabetes mellitus with ketoacidosis without coma Is this a current diagnosis for this admission?: Yes Plan: Presented with pH of 7.09, bicarb 4.7, anion gap 32. Home medications are insulin glargine, insulin aspart pre-meal and sliding scale. Patient somnolent does not provide much history, as per friend who is accom panying her patient is very compliant with her diabetic control. Admit to IMCU, aggressive volume resuscitation guided by volume status, bicarb drip, insulin drip, monitor electrolytes and replace as needed, Accu-Chek, hypoglycemia protocol, switch to subcutaneous insulin once anion gap, adjust dos age as needed, diabetic education. (2) Cellulitis and abscess of hand Is this a current diagnosis for this admission?: Yes Plan: Right hand dorsal aspect diffuse swelling and erythema, no sign of trauma, no skin compromise, no active discharge, neurovascularly intact. As per friend who is providing history, patient has not had any trauma, bug or tick bite, or any IV drug abuse. Empiric IV antibiotics, x-ray, blood culture. If no improvement will consult orthopedic surgery. (3) Nausea and vomiting Qualifiers: Vomiting type: unspecified Vomiting Intractability: unspecified Qualified Code(s): R11.2 - Nausea with vomiting, unspecified Is this a current diagnosis for this admission?: Yes Plan: Due to #1, antiemetics, monitor volume status and electrolytes, replace as needed. (4) Hyperthyroidism Is this a current diagnosis for this admission?: Yes Plan: On methimazole. Will obtain TSH. Resume home meds. Patient PCP follow-up. - Time Time Spent with patient: 35 or more minutes Medications reviewed and adjusted accordingly: Yes Anticipated Discharge Disposition: Home, Self Care Anticipated Discharge Timeframe: within 72 hours
[2020-04-19] MEDS ORDERED: SODIUM BICARBONATE 8.4% INJ 50 MEQ/50 ML DISP.SYRIN ONE ×2 (21:52→22:34)
[2020-04-19 21:56] LABS: ARTERIAL BLOOD BASE EXCESS -23.1 mmol/L; ARTERIAL BLOOD H2CO3 0.48 mmol/L (1.05-1.35); ARTERIAL BLOOD HCO3 4.7 mmol/L (20-24); ARTERIAL BLOOD TOTAL CO2 5.2 mmol/L (21-25)
[2020-04-19 21:57] LABS: ARTERIAL BLOOD FIO2 ROOM AIR
[2020-04-19 21:59] LABS: ARTERIAL BLOOD PH 7.09 (7.35-7.45)
[2020-04-20 00:36] LABS: ARTERIAL BLOOD BASE EXCESS -16.2 mmol/L; ARTERIAL BLOOD H2CO3 0.77 mmol/L (1.05-1.35); ARTERIAL BLOOD PCO2 25.5 mmHg (35-45); ARTERIAL BLOOD PH 7.21 (7.35-7.45); ARTERIAL BLOOD PO2 42.7 mmHg (80-100); ARTERIAL BLOOD TOTAL CO2 10.8 mmol/L (21-25)
[2020-04-20 00:37] LABS: ARTERIAL BLOOD FIO2 RA; ARTERIAL BLOOD O2 SATURATION 69.6 % (94-98)
[2020-04-20 01:29] LABS: BLOOD UREA NITROGEN 10 mg/dL (7-20); CALCIUM 8.5 mg/dL (8.4-10.2); CHLORIDE 116 mmol/L (98-107); GLUCOSE 307 mg/dL (75-110)
[2020-04-20 01:36] LABS: ANION GAP 22 (5-19); CARBON DIOXIDE 10 mmol/L (22-30); POTASSIUM 3.5 mmol/L (3.6-5.0)
[2020-04-20] MEDS ORDERED: POTASSI CL 20 MEQ/D5NS 1L 20 MEQ/1,000 ML RTUINJ IV PRN (01:44)
[2020-04-20] MEDS: FAMOTIDINE INJ/PF 20 MG/2 ML SDV IV SCH ×2 (03:06→10:02)
[2020-04-20] MEDS: ONDANSETRON HCL INJ/PF 4 MG/2 ML SDV IV PRN ×2 (03:18→08:54)
[2020-04-20 04:49] LABS: URINE AMPHETAMINES SCREEN NEGATIVE; URINE BARBITURATES SCREEN NEGATIVE; URINE BENZODIAZEPINES SCREEN NEGATIVE; URINE COCAINE SCREEN NEGATIVE; URINE MARIJUANA (THC) SCREEN NEGATIVE; URINE METHADONE SCREEN NEGATIVE; URINE PHENCYCLIDINE SCREEN NEGATIVE
[2020-04-20 05:09] LABS: ABSOLUTE LYMPHOCYTES (AUTO) 1.1 10^3/uL (0.5-4.7); ABSOLUTE NEUT (AUTO) 15.7 10^3/uL (1.7-8.2); BASOPHILS % (AUTO) 0.1 % (0-2); LYMPHOCYTES % (AUTO) 6.1 % (13-45); MEAN CORPUSCULAR HEMOGLOBIN 31.8 pg (27.0-33.4); MEAN CORPUSCULAR HGB CONC 34.2 g/dL (32.0-36.0); MONOCYTES % (AUTO) 5.5 % (3-13); PLATELET COUNT 386 10^3/uL (150-450); SEGMENTED NEUTROPHILS % (AUTO) 88.3 % (42-78); TOTAL CELLS COUNTED % (AUTO) 100 %; WHITE BLOOD COUNT 17.7 10^3/uL (4.0-10.5)
[2020-04-20 05:25] LABS: ALBUMIN 3.5 g/dL (3.5-5.0); ALKALINE PHOSPHATASE 87 U/L (38-126); ANION GAP 14 (5-19); ASPARTATE AMINO TRANSFERASE 18 U/L (14-36); BILIRUBIN,DIRECT 0.4 mg/dL (0.0-0.4); BILIRUBIN,TOTAL 0.4 mg/dL (0.2-1.3); BLOOD UREA NITROGEN 8 mg/dL (7-20); CALCIUM 9.2 mg/dL (8.4-10.2); CHLORIDE 115 mmol/L (98-107); GLUCOSE 169 mg/dL (75-110); PHOSPHORUS 1.3 mg/dL (2.5-4.5); POTASSIUM 3.1 mmol/L (3.6-5.0); TOTAL PROTEIN 6.7 g/dL (6.3-8.2)
[2020-04-20 05:35] LABS: CARBON DIOXIDE 21 mmol/L (22-30)
[2020-04-20 05:39] LABS: ARTERIAL BLOOD BASE EXCESS -4.7 mmol/L; ARTERIAL BLOOD H2CO3 0.99 mmol/L (1.05-1.35); ARTERIAL BLOOD HCO3 19.4 mmol/L (20-24); ARTERIAL BLOOD O2 SATURATION 96.6 % (94-98); ARTERIAL BLOOD PH 7.39 (7.35-7.45); ARTERIAL BLOOD TOTAL CO2 20.4 mmol/L (21-25)
[2020-04-20 05:41] LABS: MEAN CORPUSCULAR VOLUME 93 fl (80-97)
[2020-04-20 05:47] LABS: ARTERIAL BLOOD FIO2 ROOM AIR
[2020-04-20] MEDS: CLINDAMYCIN 600 MG/D5W RTU 600 MG/50 ML RTUPB IV SCH ×2 (06:05→13:55)
[2020-04-20] MEDS ORDERED: POTASSI CL 40 MEQ/D5-1/2NS 1L 40 MEQ/1,000 ML RTUINJ IV PRN (06:13)
[2020-04-20] MEDS ORDERED: DEXTROSE 50%-WATER 25 GM/50 ML DISP.SYRIN IV PRN ×2 (06:15)
[2020-04-20] MEDS ORDERED: DEXTROSE 40% GEL 15 GM TUBE PO PRN ×2 (06:15)
[2020-04-20] MEDS ORDERED: GLUCAGON,HUMAN RECOMB 1 MG INJ IM PRN (06:15)
[2020-04-20] MEDS ORDERED: INSULIN GLARGINE,HUM.REC.ANLOG 1,000 UNIT/10 ML VIAL SUBCUT ONE (06:16)
[2020-04-20] MEDS: INSULIN LISPRO 100 UNIT/ML 3 ML VIAL SUBCUT SCH ×2 (08:08→11:59)
[2020-04-20] MEDS ORDERED: POTASSI CL 20 MEQ/50 ML RIDER 20 MEQ/50 ML RTUPB IV ONE (08:30)
--- NOTE | 2020-04-20 08:58 | RADIOLOGY REPORT (SQ) ---
EXAM DESCRIPTION: HAND RIGHT 2 VIEWS IMAGES COMPLETED DATE/TIME: 04/20/2020 7:25 am REASON FOR STUDY: Right hand cellulitis COMPARISON: None. EXAM PARAMETERS: NUMBER OF VIEWS: Two view. TECHNIQUE: AP and lateral radiographic images acquired of the right hand. LIMITATIONS: None. FINDINGS: MINERALIZATION: Normal. BONES: No acute fracture or dislocation. No worrisome bone lesions. JOINTS: No effusions. SOFT TISSUES: Diffuse soft tissue swelling. No foreign body. OTHER: No other significant finding. IMPRESSION: DIFFUSE SOFT TISSUE SWELLING. TECHNICAL DOCUMENTATION: JOB ID: [id number] 2010 [employer]- All Rights Reserved Reading location - IP/workstation name: [email or web address]
[2020-04-20] MEDS ORDERED: PROMETHAZINE HCL INJ 25 MG/1 ML VIAL IV PRN (09:58)
[2020-04-20] MEDS ORDERED: ENOXAPARIN SODIUM INJ 40 MG/0.4 ML DISP.SYRIN SUBCUT SCH (10:00)
[2020-04-20] MEDS ORDERED: DOCUSATE SODIUM 100 MG/10 ML UDC PO SCH (10:00)
[2020-04-20] MEDS ORDERED: INSULIN GLARGINE,HUM.REC.ANLOG 1,000 UNIT/10 ML VIAL SUBCUT SCH ×2 (10:00)
[2020-04-20] MEDS: PROMETHAZINE HCL INJ 25 MG/1 ML VIAL ONE ×2 (10:04→10:11)
[2020-04-20] MEDS ORDERED: PROMETHAZINE HCL INJ 25 MG/1 ML VIAL IV ONE (10:30)
[2020-04-20 12:36] LABS: BLOOD UREA NITROGEN 10 mg/dL (7-20); CHLORIDE 115 mmol/L (98-107); GLUCOSE 305 mg/dL (75-110); POTASSIUM 3.9 mmol/L (3.6-5.0)
[2020-04-20 12:44] LABS: CARBON DIOXIDE 12 mmol/L (22-30)
[2020-04-20 12:45] LABS: ANION GAP 22 (5-19)
[2020-04-20 13:31] VITALS: BP 134/59
--- NOTE | 2020-04-20 16:52 | Left Against Medical Advice ---
Against Medical Advice Admission Date/Time: 04/19/20 20:44 Primary Care Provider: МАРИЯ PALMER MD Date of Patient Emigration: 04/20/20 - Diagnosis: (1) Cellulitis and abscess of hand Is this a current diagnosis for this admission?: Yes (2) Diabetic ketoacidosis Is this a current diagnosis for this admission?: Yes (3) Hyperthyroidism Is this a current diagnosis for this admission?: Yes (4) Nausea and vomiting Is this a current diagnosis for this admission?: Yes - Summary: Summary: Please see Admission and Progress Notes as well. NEIL LONG is a 30 F, who LEFT AGAINST MEDICAL ADVICE. The Patient was admitted on 04/19/20 20:44. Patient was admitted 04/19/2024 DKA. She was managed with a standard care set of generous IV fluids, insulin drip, and several chemistries. A.m. lab work demonstrated that the patient was no longer in DKA with a closed anion gap, and bicarb level of 21. She was provided subcutaneous Lantus 20 units and placed on a clear liquid diet with sliding scale Humalog. A follow-up chemistry this afternoon showed that she had returned to DKA with an anion gap of 22 and bicarb of 12. Unfortunately, prior to these labs being addressed; the patient left against medical advice. The risks of leaving AMA were reviewed by nursing; I was unable to see patient prior to her emigration r/t ongoing ACLS emergency w/ patient on another floor.
== END 2020-04-20 15:10 | disposition left against medical advice (07) | DRG 638 ==
LOC: ER 16:23 → EH 20:44 → 5 04-20 03:01
PROVIDERS: ADMIT Internal Medicine; ATTEND Internal Medicine
DX: E10.10 Type 1 diabetes mellitus with ketoacidosis without coma (principal); L03.113 Cellulitis of right upper limb; J45.909 Unspecified asthma, uncomplicated; E05.90 Thyrotoxicosis, unspecified without thyrotoxic crisis or storm; M54.9 Dorsalgia, unspecified; G89.29 Other chronic pain; K21.9 Gastro-esophageal reflux disease without esophagitis; F17.200 Nicotine dependence, unspecified, uncomplicated; Z86.14 Personal history of Methicillin resistant Staphylococcus aureus infection; Z82.49 Family history of ischemic heart disease and other diseases of the circulatory system; Z83.3 Family history of diabetes mellitus; Z83.438 Family history of other disorder of lipoprotein metabolism and other lipidemia; Z79.4 Long term (current) use of insulin; Z88.6 Allergy status to analgesic agent; Z88.8 Allergy status to other drugs, medicaments and biological substances; Z91.013 Allergy to seafood; Z79.899 Other long term (current) drug therapy
CPT/HCPCS: 36415; 80053; 80307; 81001; 81025; 82803; 82962; 83036; 83690; 83735; 84100; 85025; 85652; 86140; 87040; 96361; 96365; 96368; 96375; 99285; J1650; J1815; J2405; J2550; J2765; J3480; J3490; J7060; J7120; S0028

== ENCOUNTER 2020-05-21 09:12 | Emergency (ER) | payer SELFPAY ==
[2020-05-21] MEDS: RINGERS SOLUTION,LACTATED 1,000 ML IV PRN ×2 (09:50→10:50)
[2020-05-21 10:29] LABS: ABSOLUTE BASOPHILS # (AUTO) 0.1 10^3/uL (0.0-0.2); ABSOLUTE MONOCYTES (AUTO) 0.6 10^3/uL (0.1-1.4); ABSOLUTE NEUT (AUTO) 13.9 10^3/uL (1.7-8.2); BASOPHILS % (AUTO) 0.4 % (0-2); HEMATOCRIT 50.9 % (36.0-47.0); HEMOGLOBIN 17.7 g/dL (12.0-15.5); LYMPHOCYTES % (AUTO) 6.2 % (13-45); MEAN CORPUSCULAR HEMOGLOBIN 32.4 pg (27.0-33.4); MEAN CORPUSCULAR HGB CONC 34.7 g/dL (32.0-36.0); MEAN CORPUSCULAR VOLUME 93 fl (80-97); PLATELET COUNT 438 10^3/uL (150-450); RED BLOOD COUNT 5.45 10^6/uL (3.72-5.28); RED CELL DISTRIBUTION WIDTH 14.1 % (11.5-14.0); SEGMENTED NEUTROPHILS % (AUTO) 89.4 % (42-78); TOTAL CELLS COUNTED % (AUTO) 100 %; WHITE BLOOD COUNT 15.5 10^3/uL (4.0-10.5)
--- NOTE | 2020-05-21 10:46 | ER Document Report ---
Entered by VALDEZ GARCIA SCRIBE 05/21/20 0931 Acting as scribe for:NAOMI RIVAS MD ED Respiratory Problem - General Chief Complaint: Shortness Of Breath Stated Complaint: SHORTNESS OF BREATH Time Seen by Provider: 05/21/20 09:28 Primary Care Provider: МАРИЯ PALMER MD [Primary Care Provider] - Follow up as needed Mode of Arrival: Ambulatory Information source: Patient Notes: This 30 year old female patient with type 1 diabetes presents to the emergency department today with complaints of possible DKA. Patient takes the OTC quick acting insulin and mentions that she has been rather non-compliant with checking her sugars as she ran out of test strips. She complains of low back pain which she adds is normal for her when she goes into DKA. Patient complains of nausea but she denies vomiting or cough. TRAVEL OUTSIDE OF THE [place] IN LAST 30 DAYS: No - Related Data Allergies/Adverse Reactions: cefaclor [From Ceclor] Allergy (Unknown, Verified 12/15/17 11:22) codeine [Codeine] Allergy (Verified 12/15/17 11:22) Shellfish * Allergy (Verified 12/15/17 11:22) Past Medical History - General Information source: Patient - Social History Smoking Status: Current Some Day Smoker Cigarette use (# per day): Yes Frequency of alcohol use: None Drug Abuse: None Lives with: Family Family History: Reviewed & Not Pertinent, Arthritis, CAD, CVA, DM, Hyperlipidemia, Hypertension, Malignancy, Thyroid Disfunction Pulmonary Medical History: Reports: Hx Asthma Neurological Medical History: Reports: Hx Migraine Endocrine Medical History: Reports: Hx Diabetes Mellitus Type 1 Malignancy Medical History: Reports: Hx Cervical Cancer - Precancerous cells on a LEEP GI Medical History: Reports: Hx Gastroesophageal Reflux Disease Musculoskeletal Medical History: Reports Hx Arthritis, Reports Hx Musculoskeletal Deformity, Reports Hx Musculoskeletal Trauma Skin Medical History: Reports Hx MRSA Psychiatric Medical History: Reports: Hx Anxiety, Hx Depression Traumatic Medical History: Reports: Hx Fractures - All fingers, both feet and ankles, right leg, nose, both wrist and right Infectious Medical History: Reports: Hx MRSA Past Surgical History: Reports: Hx Adenoidectomy, Hx Gynecologic Surgery - LEEP, Hx Myringotomy, Hx Oral Surgery - [place] teeth, Hx Orthopedic Surgery - Right anterior cruciate ligament repair, Hx Tonsillectomy - Immunizations Immunizations up to date: Yes Hx Diphtheria, Pertussis, Tetanus Vaccination: Yes - "ATLEAST 5 YEARS AGO" Hx Pneumococcal Vaccination: 04/06/14 Review of Systems - Review of Systems Constitutional: No symptoms reported EENT: No symptoms reported Cardiovascular: No symptoms reported Respiratory: Short of breath. denies: Cough Gastrointestinal: See HPI, Nausea. denies: Vomiting Genitourinary: No symptoms reported Female Genitourinary: No symptoms reported Musculoskeletal: No symptoms reported Skin: No symptoms reported Hematologic/Lymphatic: No symptoms reported Neurological/Psychological: No symptoms reported -: Yes All other systems reviewed and negative Physical Exam - Vital signs Vitals: Temp Pulse Resp BP Pulse Ox 98.1 F 132 H 18 142/77 H 100 05/21/20 09:18 05/21/20 09:18 05/21/20 09:18 05/21/20 09:18 05/21/20 09:18 - Notes Notes: Physical Exam: General: Alert, appears uncomfortable, strong ketone odor on breath. HEENT: Normocephalic. Atraumatic. PERRL. Extraocular movements intact. Oropharynx clear. Neck: Supple. Non-tender. Respiratory: Mild respiratory distress, mildly tachypneic. Clear and equal breath sounds bilaterally. Cardiovascular: Tachycardic, regular rhythm. Abdominal: Normal Inspection. Non-tender. No distension. Normal Bowel Sounds. Back: No gross abnormalities. Extremities: Moves all four extremities. Upper extremities: Normal inspection. Normal ROM. Lower extremities: Normal inspection. No edema. Normal ROM. Neurological: Normal cognition. AAOx4. Normal speech. Good sensation in the feet. Psychological: Normal affect. Normal Mood. Skin: Warm. Dry. Normal color. No skin break down between the toes. Course - Re-evaluation Re-evalutation: 05/21/20 18:10 After 2 L of IV fluids, the patient was feeling better and left AMA. Her blood sugars were not dangerously elevated, and she had only a very mild acidosis. She has left AMA in the past when she is much sicker than this time. - Vital Signs Vital signs: Temp Pulse Resp BP Pulse Ox 98.5 F 132 H 31 H 145/74 H 100 05/21/20 12:07 05/21/20 09:18 05/21/20 13:30 05/21/20 13:30 05/21/20 12:07 - Laboratory Result Diagrams: 05/21/20 10:14 05/21/20 10:14 Laboratory results interpreted by me: 05/21/20 05/21/20 05/21/20 10:14 10:14 10:14 WBC 15.5 H RBC 5.45 H Hgb 17.7 H Hct 50.9 H RDW 14.1 H Lymph % (Auto) 6.2 L Absolute Neuts (auto) 13.9 H Seg Neutrophils % 89.4 H VBG pCO2 28.1 L VBG HCO3 16.2 L Sodium 135.6 L Chloride 91 L Carbon Dioxide 12 L Anion Gap 33 H BUN 24 H Glucose 252 H POC Glucose Calcium 11.1 H Total Protein 9.2 H Albumin 5.2 H Urine Protein Urine Glucose (UA) Urine Ketones 05/21/20 05/21/20 05/21/20 10:20 12:03 13:30 WBC RBC Hgb Hct RDW Lymph % (Auto) Absolute Neuts (auto) Seg Neutrophils % VBG pCO2 VBG HCO3 Sodium Chloride Carbon Dioxide Anion Gap BUN Glucose POC Glucose 254 H 337 H Calcium Total Protein Albumin Urine Protein 30 H Urine Glucose (UA) >=500 H Urine Ketones 80 H Discharge - Discharge Clinical Impression: Dehydration, Poorly controlled type 1 diabetes mellitus Diabetic ketoacidosis Qualifiers: Diabetes mellitus type: type 1 Diabetes mellitus complication detail: without coma Qualified Code(s): E10.10 - Type 1 diabetes mellitus with ketoacidosis without coma Disposition: AGAINST MEDICAL ADVICE Referrals: МАРИЯ PALMER MD [Primary Care Provider] - Follow up as needed I personally performed the services described in the documentation, reviewed and edited the documentation which was dictated to the scribe in my presence, and it accurately records my words and actions.
[2020-05-21 10:47] LABS: ALBUMIN 5.2 g/dL (3.5-5.0); ALKALINE PHOSPHATASE 90 U/L (38-126); ASPARTATE AMINO TRANSFERASE 20 U/L (14-36); BILIRUBIN,DIRECT 0.3 mg/dL (0.0-0.4); BILIRUBIN,TOTAL 1.3 mg/dL (0.2-1.3); BLOOD UREA NITROGEN 24 mg/dL (7-20); CALCIUM 11.1 mg/dL (8.4-10.2); CARBON DIOXIDE 12 mmol/L (22-30); CHLORIDE 91 mmol/L (98-107); CREATINE KINASE 123 U/L (30-135); GLUCOSE 252 mg/dL (75-110); POTASSIUM 3.9 mmol/L (3.6-5.0); TOTAL PROTEIN 9.2 g/dL (6.3-8.2)
[2020-05-21 10:49] LABS: ANION GAP 33 (5-19)
[2020-05-21 11:14] LABS: VENOUS BLOOD BASE EXCESS -6.9 mmol/L; VENOUS BLOOD HCO3 16.2 mmol/L (20-32); VENOUS BLOOD PCO2 28.1 mmHg (35-63); VENOUS BLOOD PH 7.38 (7.30-7.42)
[2020-05-21] MEDS ORDERED: ONDANSETRON HCL INJ/PF 4 MG/2 ML SDV IV ONE (12:20)
[2020-05-21] MEDS ORDERED: FENTANYL CITRATE INJ/PF 100 MCG/2 ML AMPUL IV ONE (12:21)
[2020-05-21 12:27] LABS: APPEARANCE,URINE CLEAR; BILIRUBIN,URINE NEGATIVE (NEGATIVE); COLOR,URINE YELLOW; GLUCOSE, URINE >=500 mg/dL (NEGATIVE); KETONES,URINE 80 mg/dL (NEGATIVE); LEUKOCYTE ESTERASE,URINE NEGATIVE (NEGATIVE); NITRITE,URINE NEGATIVE (NEGATIVE); PROTEIN,URINE 30 mg/dL (NEGATIVE); URINE SPECIFIC GRAVITY 1.013; UROBILINOGEN,URINE NEGATIVE mg/dL (<2.0)
[2020-05-21 13:41] VITALS: BP 145/74
== END 2020-05-21 13:45 | disposition left against medical advice (07) ==
LOC: ER 09:12
DX: E10.10 Type 1 diabetes mellitus with ketoacidosis without coma (principal); E86.0 Dehydration; M54.5 Low back pain; R11.0 Nausea; F17.210 Nicotine dependence, cigarettes, uncomplicated; R00.0 Tachycardia, unspecified; J45.909 Unspecified asthma, uncomplicated; R06.02 Shortness of breath; Z88.1 Allergy status to other antibiotic agents; Z88.6 Allergy status to analgesic agent; Z88.5 Allergy status to narcotic agent; Z91.013 Allergy to seafood; Z91.19 Patient's noncompliance with other medical treatment and regimen
CPT/HCPCS: 99284; 96361; 96374; 96375; 36415; 82962; 82550; 85025; 80053; 81001; 82803; J3010; J2405; J7120